=== PATIENT | female | born 1940 | race Caucasian/White ===

== ENCOUNTER → 2016-08-01 | Outpatient (CLI) | payer OTHER ==
[~2016-08-01] MED LIST: ATOR10TA88 PO; CALC-48 PO; CYAN100T6 PO; GARL400T4 PO; MULTTAB94 PO; NAPR-201 PO; PRLSR20 PO
[2016-08-01 17:01] LABS: BASO % 0.2 %; BASO ABS # 0.01 K/uL (0-0.2); COMPLETE YES; EOS % 2.3 %; HEMATOCRIT 35.1 % (37-47); IG% 0.2 %; LYMPH % 22.5 %; LYMPH ABS # 1.18 K/uL (1.2-3.4); MEAN CELL VOLUME 86.7 fL (80-100); MEAN CORPUSCULAR HEMOGLOBIN 29.4 pg (25-34); MEAN CORPUSCULAR HGB CONC 33.9 g/dl (32-36); MEAN PLATELET VOLUME 9.8 fL (7.4-10.4); MONO % 10.9 %; NEUT % 63.9 %; PLATELET COUNT 304 K/uL (130-400); RED BLOOD COUNT 4.05 M/uL (4.2-5.4); WHITE BLOOD COUNT 5.24 K/uL (4.8-10.8)
[2016-08-01 17:18] LABS: ALT/SGPT 23 U/L (12-78); BLOOD UREA NITROGEN 8 mg/dl (7-18); BUN/CREATININE RATIO 9.8 (10-20); CARBON DIOXIDE 28 mmol/L (21-32); CHLORIDE 95 mmol/L (98-107); CHOLESTEROL 195 mg/dl (0-200); CREATININE 0.84 mg/dl (0.60-1.20); GLUCOSE 83 mg/dl (70-99); POTASSIUM 4.1 mmol/L (3.5-5.1); SODIUM 132 mmol/L (136-145)
[2016-08-01 17:28] LABS: ALB/GLOB RATIO 1.4 (0.9-2); ALKALINE PHOSPHATASE 42 U/L (45-117); AST/SGOT 25 U/L (15-37); CHOLESTEROL/HDL RATIO 1.8; HDL CHOLESTEROL 107 mg/dl; LDL CHOLESTEROL CALCULATED 75 mg/dl; TRIGLYCERIDES 66 mg/dl (0-150); VERY LOW DENSITY LIPOPROT CALC 13 mg/dl
[2016-08-02 06:11] LABS: ESTIMATED AVERAGE GLUCOSE 126 mg/dl; HA1C FLAG Normal (Normal)
--- NOTE | 2016-08-06 07:29 | CODING QUERY MEDICAL NECESSITY ---
SUPPORTING DIAGNOSIS NEEDED Dr. Cloud, A supporting diagnosis is required for the test/procedure performed on this patient in order for us to be reimbursed by the patient's insurance. Please provide a supporting diagnosis for the following test/procedure listed below next to the test name along with your signature. *If there is no additional diagnosis for this patient that would support the following test/procedure please document that below next to the test/procedure. Test(s)/Procedure(s) that require a supporting diagnosis: * ([id number]) VITAMIN D ASSAY DIAGNOSIS: DATE OF SERVICE: 08/01/16 Provider Signature: Date: Thank you David Martin [facility] Information Management Once completed, please kindly fax back to [phone] For questions please call [phone]
== END | disposition home or self-care (01) ==
LOC: C.LABBC 14:03
PROVIDERS: ATTEND Internal Medicine Geriatric Medicine
DX: M19.90 Unspecified osteoarthritis, unspecified site (principal); I10 Essential (primary) hypertension; M85.80 Other specified disorders of bone density and structure, unspecified site; E11.9 Type 2 diabetes mellitus without complications; D64.9 Anemia, unspecified; E78.5 Hyperlipidemia, unspecified; E87.1 Hypo-osmolality and hyponatremia

== ENCOUNTER → 2017-02-16 | Outpatient (CLI) | payer OTHER ==
[2017-02-16 13:32] LABS: BASO % 0.7 %; BASO ABS # 0.04 K/uL (0-0.2); COMPLETE YES; EOS % 3.4 %; IG% 0.2 %; LYMPH ABS # 1.27 K/uL (1.2-3.4); MEAN CELL VOLUME 90.7 fL (80-100); MEAN CORPUSCULAR HEMOGLOBIN 28.9 pg (25-34); MEAN CORPUSCULAR HGB CONC 31.9 g/dl (32-36); MEAN PLATELET VOLUME 9.8 fL (7.4-10.4); MONO % 11.6 %; NEUT % 61.1 %; PLATELET COUNT 333 K/uL (130-400); RED BLOOD COUNT 4.08 M/uL (4.2-5.4); WHITE BLOOD COUNT 5.51 K/uL (4.8-10.8)
[2017-02-16 14:03] LABS: BLOOD UREA NITROGEN 14 mg/dl (7-18); BUN/CREATININE RATIO 16.5 (10-20); CALCIUM 9.1 mg/dl (8.5-10.1); CARBON DIOXIDE 26 mmol/L (21-32); CHLORIDE 98 mmol/L (98-107); CREATININE 0.82 mg/dl (0.60-1.20); GLUCOSE 98 mg/dl (70-99); POTASSIUM 4.4 mmol/L (3.5-5.1); SODIUM 132 mmol/L (136-145)
== END | disposition home or self-care (01) ==
LOC: C.LABBC 10:10
PROVIDERS: ATTEND Internal Medicine Geriatric Medicine
DX: I10 Essential (primary) hypertension (principal); E11.9 Type 2 diabetes mellitus without complications; D64.9 Anemia, unspecified; E87.1 Hypo-osmolality and hyponatremia

== ENCOUNTER → 2017-05-04 | Outpatient (CLI) | payer OTHER ==
[~2017-05-04] MED LIST changes: +ATOR10TA82 PO; -ATOR10TA88 PO
--- NOTE | 2017-05-05 07:53 | MAMMOGRAPHY REPORT ---
BILATERAL DIGITAL SCREENING MAMMOGRAM WITH CAD: 05/04/2017 CLINICAL HISTORY: Routine screening. Patient has no complaints. TECHNIQUE: Bilateral CC and MLO views were obtained. Current study was also evaluated with a Compute r Aided Detection (CAD) system. COMPARISON: Comparison is made to exams dated: 04/30/2016 mammogram, 04/27/2015 mammogram, 4 mammogram, 04/08/2013 mammogram, 03/31/2012 mammogram, and 03/26/2011 mammogram - [facility]. BREAST COMPOSITION: There are scattered areas of fibroglandular density in both breasts. FINDINGS: There has been no significant interval change comparing to prior mammograms. No suspiciou s mass, architectural distortion or cluster of microcalcifications is seen. IMPRESSION: ACR BI-RADS CATEGORY 1: NEGATIVE There is no mammographic evidence of malignancy. A 1 year screening mammogram is recommended. The pa tient will receive written notification of the results. Approximately 10% of breast cancers are not detected with mammography. A negative mammographic report should not delay biopsy if a clinically suggestive mass is present. Ana Garibay M.D. ay/:05/04/2017 15:56:04 Acid Bath Mixer: Amanda THOMAS(R)(Ramona)(BD), [facility] letter sent: Normal 1/2 BI-RADS Code: ACR BI-RADS Category 1: Negative
== END | disposition home or self-care (01) ==
LOC: C.MAMM 09:16
PROVIDERS: ATTEND Internal Medicine Geriatric Medicine
DX: Z12.31 Encounter for screening mammogram for malignant neoplasm of breast (principal)

== ENCOUNTER → 2017-08-19 | Outpatient (CLI) | payer OTHER ==
[2017-08-19 13:12] LABS: BASO % 0.5 %; BASO ABS # 0.03 K/uL (0-0.2); EOS % 2.8 %; EOS ABS # 0.17 K/uL (0-0.5); HEMATOCRIT 36.9 % (37-47); HEMOGLOBIN 12.2 g/dL (12.0-16.0); IG# 0.01 K/uL (0.00-0.02); LYMPH % 17.5 %; LYMPH ABS # 1.08 K/uL (1.2-3.4); MEAN CELL VOLUME 89.8 fL (80-100); MEAN CORPUSCULAR HEMOGLOBIN 29.7 pg (25-34); MEAN CORPUSCULAR HGB CONC 33.1 g/dl (32-36); MEAN PLATELET VOLUME 10.1 fL (7.4-10.4); MONO % 9.1 %; MONO ABS # 0.56 K/uL (0.11-0.59); NEUT % 69.9 %; NEUT ABS # 4.32 K/uL (1.4-6.5); PLATELET COUNT 322 K/uL (130-400); RED CELL DISTRIBUTION WIDTH CV 14.7 % (11.5-14.5); RED CELL DISTRIBUTION WIDTH SD 48.8 fL (36.4-46.3); WHITE BLOOD COUNT 6.17 K/uL (4.8-10.8)
[2017-08-19 13:34] LABS: ALBUMIN 3.9 gm/dl (3.4-5.0); ALT/SGPT 24 U/L (12-78); BLOOD UREA NITROGEN 13 mg/dl (7-18); CALCIUM 8.7 mg/dl (8.5-10.1); CARBON DIOXIDE 28 mmol/L (21-32); CHOLESTEROL 186 mg/dl (0-200); CREATININE 0.81 mg/dl (0.60-1.20); GLUCOSE 99 mg/dl (70-99); POTASSIUM 4.2 mmol/L (3.5-5.1); SODIUM 133 mmol/L (136-145)
[2017-08-19 13:44] LABS: ALKALINE PHOSPHATASE 43 U/L (45-117); AST/SGOT 21 U/L (15-37); LDL CHOLESTEROL CALCULATED 81 mg/dl
[2017-08-19 13:47] LABS: HEMOGLOBIN A1C 6.1 % (4.5-5.6)
== END | disposition home or self-care (01) ==
LOC: C.LABBC 11:03
PROVIDERS: ATTEND Internal Medicine Geriatric Medicine
DX: I10 Essential (primary) hypertension (principal); E11.9 Type 2 diabetes mellitus without complications; D64.9 Anemia, unspecified; E78.5 Hyperlipidemia, unspecified; E87.1 Hypo-osmolality and hyponatremia; G45.9 Transient cerebral ischemic attack, unspecified

== ENCOUNTER → 2017-08-20 | Outpatient (CLI) | payer OTHER ==
--- NOTE | 2017-08-20 09:51 | DIAGNOSTIC IMAGING REPORT ---
CHEST 2 VIEWS ROUTINE CLINICAL HISTORY: R06.09 WHYTE (dyspnea on exertion) COMPARISON STUDY: 10/07/2005 FINDINGS: The cardiac and mediastinal contours are normal. There is no evidence of focal pulmonary consolidation. There is no evidence of failure. No pleural effusions are visualized.[ IMPRESSION: No active disease in the chest. Electronically signed by: Tanner Morales M.D. 08/20/2017 9:50 AM Dictated Date/Time: 08/20/2017 9:49 AM
== END | disposition home or self-care (01) ==
LOC: C.RADBC 09:32
PROVIDERS: ATTEND Internal Medicine Geriatric Medicine
DX: R06.09 Other forms of dyspnea (principal)

== ENCOUNTER 2020-12-07 18:59 | Observation (INO) ==
[~2020-12-07 18:59] MED LIST changes: -ATOR10TA82 PO; -CALC-48 PO; -CYAN100T6 PO; -GARL400T4 PO; -MULTTAB94 PO; -NAPR-201 PO; +OPTIRAY 320 125ml IV ONE; -PRLSR20 PO
[2020-12-07] MEDS ORDERED: SODIUM CHLORIDE 0.9% 1000ML 1,000 ML IV SCH (19:00)
--- NOTE | 2020-12-07 19:22 | CT Scan Report ---
CT head/brain wo con CLINICAL HISTORY: Stroke Like Symptoms COMPARISON STUDY: None TECHNIQUE: Axial CT of the brain is performed from the vertex to the skull base. IV contrast was not administered for this examination. A dose lowering technique was utilized adhering to the principles of ALARA. CT DOSE: 1041.45 mGy.cm FINDINGS: No intra or extra-axial mass lesions are visualized. There is no CT evidence of acute cortical infarc tion. There is no evidence of midline shift. There is no acute hemorrhage. No acute depressed calvar ial fractures are visualized. There are patchy white matter hypodensities likely on a small vessel basis. There is no evidence of pathologic ventricular dilatation. There is no evidence of acute sinusitis Incidental findings of 1.0 cm circumscribed lesion is seen within right parietal scalp (/). IMPRESSION: No acute intracranial hemorrhage, no midline shift or space occupying lesions. Subcutaneous scalp lesion as detailed above. Please correlate this findings with direct inspection. ACT 112: Negative or not required by law. The above report was generated using voice recognition software. It may contain grammatical, syntax o r spelling errors. Electronically signed by: Coco Dexter DO 12/07/2020 7:21 PM
--- NOTE | 2020-12-07 19:30 | Emergency Department Note ---
Impression & Plan Stroke-like symptoms, Arm numbness left, Acute confusion, Headache ED Provider Note INFORMANT: Patient ED PROVIDER(S): Navid Medina MD CHIEF COMPLAINT: Strokelike symptoms PLAN: Disposition: Admitted Condition: Good Outpatient prescription management: none Referral: None MEDICAL DECISION MAKING: The patient presented and was made a stroke alert. She was evaluated in CAT scan by myself. She was taken back to the emergency department. I did consult with Dr. Pride of [facility] The patient's symptoms were essentially resolved. He and I discussed the patient's CT findings. He felt that TPA was not appropriate in this case and I agree. The patient has near re solution of symptoms. He did ask for her to pass the rest of the NIH screening, CT angiography, and a gait test. The patient did well on all 3 of those aspects. She was recommended to have a dose of aspirin and to transition to Plavix given aspirin causing her GI upset. Patient states she is able to take a dose or 2 without problems. She was given enteric dose of aspirin. I discussed the patient's situation with her and family. I discussed the need for further management in the hospital as recommended by [facility] The patient and family were in agreement. The patient had a consultation made with Dr. Minaya of internal medicine. The patient was evaluated by the team in the ER admitted for further management. Triage Nursing notes reviewed and agree them. Vital Signs: reviewed and remarkable for no significant abnormalities Differential diagnosis: CVA, TIA, infection, dehydration, metabolic abnormality, hypo/hyperglycemia, electrolyte disturbance, anemia, hypoxia, cardiac sources, intracerebral event, toxicologic, neurologic, as well as other pathologies. Diagnostics interpreted by me: ECG: Twelve-lead ECG reveals a normal sinus rhythm at 71 bpm. Septal Q waves present. No ST elevation or pression. No PACs or PVCs. Cardiac Monitoring: Cardiac monitoring ordered by me: The patient was placed on continuous cardiac monitoring and observed. It revealed a normal sinus rhythm at 70 beats per minute without ectopy or evidence of dysrhythmia. Imaging studies: Head CT: A noncontrast CT scan of the head was performed and was negative for tumor, fracture, intracranial hemorrhage, or other acute pathology. HPI: The patient is a 79 year old female who presents to the Emergency Room with complaints of strokelike symptoms. This started 1630 hrs. today and is current ly improving. The patient also notes the following associated symptoms, headache, acute confusion, difficulty speaking, left arm numbness, blurred vision, nausea. The patient has taken aspirin for relieving factors. Current pain is rated as 2/10. Patient notes symptoms have significantly improved since onset. She has had some similar episodes in the past but the previous ones were not associated with headache. She has had a work-up as an outpatient that did not find any issues. This included an EEG and MRI. Pt denies LOC, chills, diaphoresis, neck pain, chest pain, breathing difficulties, vomiting, abdominal pain, back pain, melena, hematochezia, urinary symptoms, weakness, lymphadenopathy, rash, or other complaints. ROS: See above HPI for pertinent positives & negatives. A total of 10 systems reviewed and were otherwise negative. PAST MEDICAL HISTORY:See Below , diabetes PAST SURGICAL HISTORY:See Below, FAMILY HISTORY:See Below SOCIAL HISTORY:See Below, HOME MEDICATIONS:See Below ALLERGIES:See Below VITALS:See Below PHYSICAL EXAMINATION: GENERAL: Awake, alert, uncomfortable and anxious-appearing, in no distress HENT: Normocephalic, atraumatic. Oropharynx unremarkable. EYES: Normal conjunctiva. Sclera non-icteric. PERRLA. EOMI. NECK: Inspection normal. Non-tender. Supple. No nuchal rigidity. FROM. No khang s. RESPIRATORY: Clear to auscultation. No wheezes. No rales. Normal respiratory effort. CARDIAC: Normal rate. Normal rhythm. No murmurs. No rubs. Extremities warm and well perfused. Pulses equal. No JVD. GI: Soft, non-distended. No tenderness to palpation. No rebound or guarding. No masses. RECTAL: Deferred. MUSCULOSKELETAL: Atraumatic. Chest examination reveals no tenderness. The back is symmetrical on inspection without obvious abnormality. There is no CVA tenderness to palpation. No joint edema. LOWER EXTREMITIES: Calves are equal size bilaterally and non-tender. No edema. No discoloration. NEURO: Normal sensorium. No sensory or motor deficits noted. Cranial nerves II through XII intact. Speech normal. Following commands well. Normal rapid alternating movements. No drift. SKIN: No rash or jaundice noted. Navid Medina MD Past Med/Surg History Medical History Bowel obstruction Dyslipidemia Family history of melanoma Gastroesophageal reflux disease History of transient cerebral ischemia Obesity, Class I, BMI 30-34.9 Type 2 diabetes mellitus Surgical History History of appendectomy History of colonoscopy History of dilation and curettage History of femoral hernia repair 2014. with mesh. Dr Amato History of loop electrical excision procedure (LEEP) History of ovarian cystectomy Family History Aunt Breast cancer Colorectal cancer Diabetes Sister Lupus erythematosus Brother Skin cancer (melanoma) Brain cancer Denies family history of Ovarian cancer Prostate cancer Myocardial infarction Social History Smoking Status: Former smoker Tobacco Type: Cigarettes Second Hand Exposure: No; Hx Alcohol Use: No Hx Substance Use: No Preferred Language: Turkmen Communication Ability: Effective Visual Impairment: Limited Hearing Ability: Normal Ultrasound Technician Required: No Beliefs That Will Affect Care: None marital status: / marital status details: remarried Current Living Situation: Spouse current occupational status: retired How many Children do You have: 0 Other Information That Helps Us Care for You: No Feels Safe at Home: Yes Childhood Exposure to Second-Hand Smoke: Yes caffeine: Yes Dental Care, Regularly: Yes Physical Activity Frequency: Does not Exercise Seatbelt Use: always Sunscreen Use: Yes Assistive Devices: None Allergies Allergies Allergy/AdvReac Type Severity Reaction Status Date / Time niacin Allergy Unknown Verified 12/07/20 20:03 Home Meds Home Medications Medication Instructions Recorded Confirmed ferrous sulfate 325 mg (65 mg 162.5 mg PO DAILY tab 05/09/19 12/07/20 iron) tablet cholecalciferol (vitamin D3) 50 50 mcg PO DAILY 12/07/20 12/07/20 mcg (2,000 unit) tablet (Vitamin D3) garlic 0 mg PO DAILY 12/07/20 12/07/20 vitamin B complex 1 tab PO DAILY 12/07/20 12/07/20 Previous Rx's Medication Instructions Recorded escitalopram oxalate 10 mg tablet 5 mg PO DAILY #45 tab 12/26/19 (Lexapro) atorvastatin 10 mg tablet (Lipitor) 10 mg PO DAILY #90 tab 06/21/20 omeprazole 20 mg capsule,delayed 20 mg PO DAILY #90 cap 09/20/20 release celecoxib 200 mg capsule (Celebrex) 200 mg PO DAILY #14 cap 11/26/20 Results & Data (ED) Vital Signs Vital Signs - 24 hr 12/07/20 19:22 12/07/20 19:35 12/07/20 21:12 Temperature 36.8 C Temperature Source Oral Pulse Rate 79 Pulse Rate [Right Finger] 73 69 Respiratory Rate 18 18 18 Blood Pressure 123/73 Blood Pressure [Right Arm] 115/69 138/81 Blood Pressure Mean 89 Blood Pressure Mean [Right Arm] 84 100 Blood Pressure Position Lying Blood Pressure Position [Right Arm] Lying Pulse Oximetry 96 96 96 Oxygen Delivery Method Room Air Room Air Room Air Sepsis Recent Fever Within 48 Hours No Sepsis New/Unexplained Change in Mental Status No Sepsis Action Taken by Nursing No Action Required Laboratory Data Result diagrams: 12/07/20 19:20 12/07/20 19:20 Lab Results 12/07/20 12/07/20 12/07/20 Range/Units 19:18 19:20 19:20 WBC 5.79 (4.8-10.8) K/uL RBC 3.50 L (4.2-5.4) M/uL Hgb 10.4 L (12.0-16.0) g/dL Hct 31.7 L (37-47) % MCV 90.6 (80-100) fL MCH 29.7 (25-34) pg MCHC 32.8 (32-36) g/dL RDW Std Deviation 46.1 (36.4-46.3) fL RDW Coeff of Sanchez 13.9 (11.5-14.5) % Plt Count 258 (130-400) K/uL MPV 9.9 (7.4-10.4) fL Immature Gran % (Auto) 0.0 % Neut % (Auto) 60.2 % Lymph % (Auto) 27.5 % Ransom % (Auto) 7.8 % Eos % (Auto) 4.0 % Baso % (Auto) 0.5 % Neut # (Auto) 3.49 (1.4-6.5) K/uL Lymph # (Auto) 1.59 (1.2-3.4) K/uL Ransom # (Auto) 0.45 (0.11-0.59) K/uL Eos # (Auto) 0.23 (0-0.5) K/uL Baso # (Auto) 0.03 (0-0.2) K/uL Immature Gran # (Auto) 0.00 (0.00-0.02) K/uL PT (9.0-12.0) Seconds INR (0.9-1.1) APTT (21.0-31.0) Seconds PTT Ratio Sodium (136-145) mmol/L Potassium (3.5-5.1) mmol/L Chloride (98-107) mmol/L Carbon Dioxide (21-32) mmol/L Anion Gap (3-11) BUN (7-18) mg/dl Creatinine (0.6-1.2) mg/dl Est Cr Clr Drug Dosing ml/min Est GFR ( Amer) ml/min Est GFR (Non-Af Amer) ml/min BUN/Creatinine Ratio (10-20) Glucose (70-99) mg/dl POC Glucose 131 H (70-99) mg/dl Calcium (8.5-10.1) mg/dl Magnesium (1.8-2.4) mg/dl Total Bilirubin (0.2-1) mg/dl AST (15-37) U/L ALT (12-78) U/L Alkaline Phosphatase (45-117) U/L Troponin I (0-0.045) ng/ml Total Protein (6.4-8.2) gm/dl Albumin (3.4-5.0) gm/dl Globulin (2.5-4.0) gm/dl Albumin/Globulin Ratio (0.9-2) Urine Color Urine Appearance (Clear) Urine pH (4.5-7.5) Ur Specific [place] (1.000-1.030) Urine Protein (Negative) Urine Glucose (UA) (Negative) Urine Ketones (Negative) Urine Blood (Negative) Urine Nitrite (Negative) Urine Bilirubin (Negative) Urine Urobilinogen (Negative) Ur Leukocyte Esterase (Negative) COVID-19 Eval Order SARS-CoV-2 (PCR) (Negative) Blood Type O Positive Antibody Screen NEGATIVE 12/07/20 12/07/20 12/07/20 Range/Units 19:20 19:20 19:33 WBC (4.8-10.8) K/uL RBC (4.2-5.4) M/uL Hgb (12.0-16.0) g/dL Hct (37-47) % MCV (80-100) fL MCH (25-34) pg MCHC (32-36) g/dL RDW Std Deviation (36.4-46.3) fL RDW Coeff of Sanchez (11.5-14.5) % Plt Count (130-400) K/uL MPV (7.4-10.4) fL Immature Gran % (Auto) % Neut % (Auto) % Lymph % (Auto) % Ransom % (Auto) % Eos % (Auto) % Baso % (Auto) % Neut # (Auto) (1.4-6.5) K/uL Lymph # (Auto) (1.2-3.4) K/uL Ransom # (Auto) (0.11-0.59) K/uL Eos # (Auto) (0-0.5) K/uL Baso # (Auto) (0-0.2) K/uL Immature Gran # (Auto) (0.00-0.02) K/uL PT 10.4 (9.0-12.0) Seconds INR 1.0 (0.9-1.1) APTT 28.8 (21.0-31.0) Seconds PTT Ratio 1.1 Sodium 130 L (136-145) mmol/L Potassium 4.1 (3.5-5.1) mmol/L Chloride 99 (98-107) mmol/L Carbon Dioxide 28 (21-32) mmol/L Anion Gap 3.0 (3-11) BUN 21 H (7-18) mg/dl Creatinine 0.76 (0.6-1.2) mg/dl Est Cr Clr Drug Dosing 58.4 ml/min Est GFR ( Amer) 85.3 ml/min Est GFR (Non-Af Amer) 73.6 ml/min BUN/Creatinine Ratio 28.3 H (10-20) Glucose 122 H (70-99) mg/dl POC Glucose (70-99) mg/dl Calcium 8.3 L (8.5-10.1) mg/dl Magnesium 2.1 (1.8-2.4) mg/dl Total Bilirubin 0.2 (0.2-1) mg/dl AST 18 (15-37) U/L ALT 17 (12-78) U/L Alkaline Phosphatase 42 L (45-117) U/L Troponin I < 0.015 (0-0.045) ng/ml Total Protein 5.7 L (6.4-8.2) gm/dl Albumin 3.0 L (3.4-5.0) gm/dl Globulin 2.7 (2.5-4.0) gm/dl Albumin/Globulin Ratio 1.1 (0.9-2) Urine Color Urine Appearance (Clear) Urine pH (4.5-7.5) Ur Specific [place] (1.000-1.030) Urine Protein (Negative) Urine Glucose (UA) (Negative) Urine Ketones (Negative) Urine Blood (Negative) Urine Nitrite (Negative) Urine Bilirubin (Negative) Urine Urobilinogen (Negative) Ur Leukocyte Esterase (Negative) COVID-19 Eval Order Covid19 at [facility] SARS-CoV-2 (PCR) (Negative) Blood Type Antibody Screen 12/07/20 12/07/20 Range/Units 19:33 19:55 WBC (4.8-10.8) K/uL RBC (4.2-5.4) M/uL Hgb (12.0-16.0) g/dL Hct (37-47) % MCV (80-100) fL MCH (25-34) pg MCHC (32-36) g/dL RDW Std Deviation (36.4-46.3) fL RDW Coeff of Sanchez (11.5-14.5) % Plt Count (130-400) K/uL MPV (7.4-10.4) fL Immature Gran % (Auto) % Neut % (Auto) % Lymph % (Auto) % Ransom % (Auto) % Eos % (Auto) % Baso % (Auto) % Neut # (Auto) (1.4-6.5) K/uL Lymph # (Auto) (1.2-3.4) K/uL Ransom # (Auto) (0.11-0.59) K/uL Eos # (Auto) (0-0.5) K/uL Baso # (Auto) (0-0.2) K/uL Immature Gran # (Auto) (0.00-0.02) K/uL PT (9.0-12.0) Seconds INR (0.9-1.1) APTT (21.0-31.0) Seconds PTT Ratio Sodium (136-145) mmol/L Potassium (3.5-5.1) mmol/L Chloride (98-107) mmol/L Carbon Dioxide (21-32) mmol/L Anion Gap (3-11) BUN (7-18) mg/dl Creatinine (0.6-1.2) mg/dl Est Cr Clr Drug Dosing ml/min Est GFR ( Amer) ml/min Est GFR (Non-Af Amer) ml/min BUN/Creatinine Ratio (10-20) Glucose (70-99) mg/dl POC Glucose (70-99) mg/dl Calcium (8.5-10.1) mg/dl Magnesium (1.8-2.4) mg/dl Total Bilirubin (0.2-1) mg/dl AST (15-37) U/L ALT (12-78) U/L Alkaline Phosphatase (45-117) U/L Troponin I (0-0.045) ng/ml Total Protein (6.4-8.2) gm/dl Albumin (3.4-5.0) gm/dl Globulin (2.5-4.0) gm/dl Albumin/Globulin Ratio (0.9-2) Urine Color Yellow Urine Appearance Clear (Clear) Urine pH 6.0 (4.5-7.5) Ur Specific [place] 1.017 (1.000-1.030) Urine Protein Negative (Negative) Urine Glucose (UA) Negative (Negative) Urine Ketones Negative (Negative) Urine Blood Negative (Negative) Urine Nitrite Negative (Negative) Urine Bilirubin Negative (Negative) Urine Urobilinogen Negative (Negative) Ur Leukocyte Esterase Negative (Negative) COVID-19 Eval Order SARS-CoV-2 (PCR) NEGATIVE (Negative) Blood Type Antibody Screen Administered Medications Sodium Chloride (Nss 1000ml) 1,000 mls @ 50 mls/hr IV .Q20H ALISHA Stop: 01/06/21 18:59 Last Admin: 12/07/20 19:39 Dose: 50 mls/hr Documented by: [id number] Discontinued Medications Aspirin (Aspirin 325 Mg Ectab) 325 mg PO NOW STA Stop: 12/07/20 20:38 Last Admin: 12/07/20 21:09 Dose: 325 mg Documented by: [id number] Ioversol (Optiray 320 125ml) 116 ml IV ONCE ONE Stop: 12/07/20 18:58 Last Admin: 12/07/20 18:57 Dose: 116 ml Documented by: [id number] Imaging Data Radiologist's Impression: Chest X-Ray 12/07/20 18:53 XR chest 1V portable CLINICAL HISTORY: Stroke Like Symptoms COMPARISON STUDY: Chest radiograph August 20, 2017. FINDINGS: Lung volumes are normal. There is no pneumothorax or pleural effusion. There is no evidence for pulmonary edema. Minimal right basilar opacity is present. Mild cardiomegaly. IMPRESSION: 1. Minimal right basilar opacity which favors atelectasis. 2. Mild cardiomegaly without evidence for pulmonary edema. ACT 112: Negative or not required by law. Electronically signed by: Marvin Fung M.D. 12/07/2020 9:[address] 12/07/20 18:53 CT head/brain wo con CLINICAL HISTORY: Stroke Like Symptoms COMPARISON STUDY: None TECHNIQUE: Axial CT of the brain is performed from the vertex to the skull bas e. IV contrast was not administered for this examination. A dose lowering technique was utilized adhering to the principles of ALARA. CT DOSE: 1041.45 mGy.cm FINDINGS: No intra or extra-axial mass lesions are visualized. There is no CT evidence of acute cortical infarction. There is no evidence of midline shift. There is no acute hemorrhage. No acute depressed calvarial fractures are visualized. There are patchy white matter hypodensities likely on a small vessel basis. There is no evidence of pathologic ventricular dilatation. There is no evidence of acute sinusitis Incidental findings of 1.0 cm circumscribed lesion is seen within right parietal scalp (08/12). IMPRESSION: No acute intracranial hemorrhage, no midline shift or space occupying lesions. Subcutaneous scalp lesion as detailed above. Please correlate this findings with direct inspection. ACT 112: Negative or not required by law. The above report was generated using voice recognition software. It may contain grammatical, syntax or spelling errors. Electronically signed by: Coco Dexter DO 12/07/2020 7:21 PM Head CTA 12/07/20 18:53 CT angio head w con CLINICAL HISTORY: Stroke Like Symptoms TECHNIQUE: CT angiography of the head was performed in a dynamic helical fashion during intravenous administration of 116 cc of Optiray. MIP imaging was perfor med. A dose lowering technique was utilized adhering to the principles of ALARA. CT DOSE: COMPARISON STUDY: No previous studies for comparison. FINDINGS: There are no lesion suspicious for aneurysm. There are no major intracranial branch occlusions. The dural venous sinuses appear patent. IMPRESSION: No evidence of focal occlusion or significant stenosis within intracranial arteries as detailed above. ACT 112: Negative or not required by law. The above report was generated using voice recognition software. It may contain grammatical, syntax or spelling errors. Electronically signed by: Coco Dexter DO 12/07/2020 8:14 PM Neck CTA 12/07/20 18:53 CT angio neck with con CLINICAL HISTORY: Stroke Like Symptoms COMPARISON STUDY: No previous studies for comparison. TECHNIQUE: CT angiography was performed from the aortic arch to the skull base. MIP imaging was performed. The patient was scanned in a dynamic helical fashion during intravenous administration of cc of Optiray. A dose lowering technique was utilized adhering to the principles of ALARA. CT DOSE: Technique: CT angiogram of the carotid and vertebral arteries was obtained using intravenous contrast and 3-D reconstruction. NASCET criteria was utilized. Findings: Limited evaluation of lung apices shows 4 mm pulmonary nodule within right upper lobe (4/57). Bilateral internal and external carotid arteries are extremely tortuous. Few atherosclerotic plaques are seen within its wall without significant stenosis. The right carotid revealed no evidence of aneurysm and no evidence of di ssection. There is no evidence of hemodynamic significant stenosis. The left carotid revealed no evidence of hemodynamic significant stenosis. There is no evidence of aneurysm. There is no evidence of dissection. There is no evidence of hemodynamically significant vertebral stenosis. Right and left vertebral arteries are tortuous with multiple eccentric plaques and no evidence of hemodynamically significant stenosis. There is no evidence of vertebral dissection. IMPRESSION: No evidence of hemodynamically significant carotid or vertebral artery stenosis. No evidence of dissection. 4 mm pulmonary nodule within the right upper lobe. Follow-up evaluation with noncontrast CT of the chest on nonemergency basis might be considered. ACT 112: Positive. There are findings on this exam that require communication between the performing entity and the patient following Patient Test Result Information Act ([place] Act 112) guidelines. The above report was generated using voice recognition software. It may contain grammatical, syntax or spelling errors. Electronically signed by: Coco Dexter DO 12/07/2020 8:09 PM Discharge Plan Visit Data Chief Complaint: Stroke Alert Stated Complaint: STROKE ED Provider: Navid Medina Discharge Problem: Stroke-like symptoms, Arm numbness left, Acute confusion, Headache Patient Disposition: Admitted As Inpatient Discharge Instructions Interventions: ED Discharge Assessment Last Done: 12/07/20 22:07
[2020-12-07 19:40] LABS: Basophils # (auto) 0.03 K/uL (0-0.2); Basophils % (auto) 0.5 %; Eosinophils # (auto) 0.23 K/uL (0-0.5); Hematocrit (blood only) 31.7 % (37-47); Hemoglobin 10.4 g/dL (12.0-16.0); Lymphocytes # (auto) 1.59 K/uL (1.2-3.4); Lymphocytes % (auto) 27.5 %; Mean Corpuscular Hemoglobin 29.7 pg (25-34); Mean Corpuscular Hgb Conc 32.8 g/dL (32-36); Mean Corpuscular Volume 90.6 fL (80-100); Mean Platelet Volume 9.9 fL (7.4-10.4); Monocytes # (auto) 0.45 K/uL (0.11-0.59); Monocytes % (auto) 7.8 %; Neutrophils # (auto) 3.49 K/uL (1.4-6.5); Neutrophils % (auto) 60.2 %; Platelet Count 258 K/uL (130-400); RDW Coefficient of Variation 13.9 % (11.5-14.5); RDW Standard Deviation 46.1 fL (36.4-46.3); White Blood Count 5.79 K/uL (4.8-10.8)
[2020-12-07 20:01] LABS: Alanine Aminotransferase 17 U/L (12-78); Aspartate Aminotransferase 18 U/L (15-37); BUN Creatinine Ratio 28.3 (10-20); Blood Urea Nitrogen 21 mg/dl (7-18); Calcium 8.3 mg/dl (8.5-10.1); Carbon Dioxide 28 mmol/L (21-32); Chloride 99 mmol/L (98-107); Creatinine Clr Calc Pharmacy 58.4 ml/min; Est GFR (African American) 85.3 ml/min; Est GFR (Non-African American) 73.6 ml/min; Glucose 122 mg/dl (70-99); Magnesium 2.1 mg/dl (1.8-2.4); Potassium 4.1 mmol/L (3.5-5.1); Sodium 130 mmol/L (136-145)
[2020-12-07 20:05] LABS: Albumin Globulin Ratio 1.1 (0.9-2); Alkaline Phosphatase 42 U/L (45-117); Bilirubin,Total 0.2 mg/dl (0.2-1); Globulin 2.7 gm/dl (2.5-4.0); Partial Thromboplastin Ratio 1.1; Partial Thromboplastin Time 28.8 Seconds (21.0-31.0); Prothrombin Time 10.4 Seconds (9.0-12.0); Total Protein 5.7 gm/dl (6.4-8.2); Troponin I < 0.015 ng/ml (0-0.045)
--- NOTE | 2020-12-07 20:10 | CT Scan Report ---
CT angio neck with con CLINICAL HISTORY: Stroke Like Symptoms COMPARISON STUDY: No previous studies for comparison. TECHNIQUE: CT angiography was performed from the aortic arch to the skull base. MIP imaging was perfo rmed. The patient was scanned in a dynamic helical fashion during intravenous administration of cc of Optiray. A dose lowering technique was utilized adhering to the principles of ALARA. CT DOSE: Technique: CT angiogram of the carotid and vertebral arteries was obtained using intravenous contrast and 3-D reconstruction. NASCET criteria was utilized. Findings: Limited evaluation of lung apices shows 4 mm pulmonary nodule within right upper lobe (4/57). Bilateral internal and external carotid arteries are extremely tortuous. Few atherosclerotic plaques are seen within its wall without significant stenosis. The right carotid revealed no evidence of aneurysm and no evidence of dissection. There is no evidenc e of hemodynamic significant stenosis. The left carotid revealed no evidence of hemodynamic significant stenosis. There is no evidence of an eurysm. There is no evidence of dissection. There is no evidence of hemodynamically significant vertebral stenosis. Right and left vertebral candi nellie are tortuous with multiple eccentric plaques and no evidence of hemodynamically significant sten osis. There is no evidence of vertebral dissection. IMPRESSION: No evidence of hemodynamically significant carotid or vertebral artery stenosis. No evidence of disse ction. 4 mm pulmonary nodule within the right upper lobe. Follow-up evaluation with noncontrast CT of the ch est on nonemergency basis might be considered. ACT 112: Positive. There are findings on this exam that require communication between the performing entity and the patient following Patient Test Result Information Act ([place] Act 112) guidelines. The above report was generated using voice recognition software. It may contain grammatical, syntax o r spelling errors. Electronically signed by: Coco Dexter DO 12/07/2020 8:09 PM
--- NOTE | 2020-12-07 20:15 | CT Scan Report ---
CT angio head w con CLINICAL HISTORY: Stroke Like Symptoms TECHNIQUE: CT angiography of the head was performed in a dynamic helical fashion during intravenous a dministration of 116 cc of Optiray. MIP imaging was performed. A dose lowering technique was utilized adhering to the principles of ALARA. CT DOSE: COMPARISON STUDY: No previous studies for comparison. FINDINGS: There are no lesion suspicious for aneurysm. There are no major intracranial branch occlusi ons. The dural venous sinuses appear patent. IMPRESSION: No evidence of focal occlusion or significant stenosis within intracranial arteries as d etailed above. ACT 112: Negative or not required by law. The above report was generated using voice recognition software. It may contain grammatical, syntax o r spelling errors. Electronically signed by: Coco Dexter DO 12/07/2020 8:14 PM
[2020-12-07] MEDS ORDERED: ASPIRIN 325 MG ECTAB PO STA (20:37)
[2020-12-07 20:56] LABS: Appearance Urine Clear (Clear); Bilirubin Urine Negative (Negative); Blood Urine Negative (Negative); Color Urine Yellow; Glucose Urine UA Negative (Negative); Ketones Urine Negative (Negative); Leukocyte Esterase Urine Negative (Negative); Nitrite Urine Negative (Negative); Protein Urine Negative (Negative); Specific Gravity Urine 1.017 (1.000-1.030); Urobilinogen Urine Negative (Negative)
--- NOTE | 2020-12-07 21:13 | XRay Report ---
XR chest 1V portable CLINICAL HISTORY: Stroke Like Symptoms COMPARISON STUDY: Chest radiograph August 20, 2017. FINDINGS: Lung volumes are normal. There is no pneumothorax or pleural effusion. There is no evidence for pulmonary edema. Minimal right basilar opacity is present. Mild cardiomegaly. IMPRESSION: 1. Minimal right basilar opacity which favors atelectasis. 2. Mild cardiomegaly without evidence for pulmonary edema. ACT 112: Negative or not required by law. Electronically signed by: Marvin Fung M.D. 12/07/2020 9:12 PM
--- NOTE | 2020-12-07 21:54 | History & Physical Report ---
Date of Service December 07, 2020 Assessment & Plan (1) Stroke-like symptoms: Plan: 79 yo F here with pMHx. of DMII (diet controlled), prior smoking history, anemia, reflux, dyslipidemia, HTN and OA presenting with recurrent episodes of right sided vision blurring, word finding difficulty concerning for stroke. admit to med/surg with tele Stroke like symptoms differential includes stroke vs. complex migraine vs. seizure activity although this is unlikely as she has no prior history of this CT Head: with no acute findings CTA Head and Neck: No evidence of focal occlusion or significant stenosis within intracranial arteries NSR on exam - stroke protocol enacted, not given TPA as her symptoms resolved - seen by telestroke in the ER - MRI w/ & w/o ordered - EEG ordered - continue statin; ASA ordered once although she is not able to tolerate chronically and we will initiate Plavix tomorrow AM - Neurology consulted - PT, OT, speech ordered - allow for permissive hypertension DM II diet controlled - continue to monitor blood sugars Dyslipidemia - continue home statin Reflux - continue home PPI Depression - continue home escitalopram Pulmonary nodule CT neck with incidental finding of 4mm pulmonary nodule, patient notified - consider dedicated CT chest during hospitalization or as an outpatient and follow screening guidelines going forward Diet: DM II DVT: SCD's Code: full Dispo: pending neuro workup (2) Headache: (3) Type 2 diabetes mellitus: (4) Anemia: (5) Depression with anxiety: (6) Hypertension: History of Present Illness Chief Complaint: Arm numbness, vision changes, and headache Primary Care Provider: Rip Cloud MD Jayashree Renee is here today with her and daughter for arm numbness, vision changes, and headache. She has had 5 episodes over the last year. Her episode started at 4:30 PM with right sided vision blurring and numbness of the face and left hand. She has had cataract surgery on the right. She had trouble speaking described as word finding and slow speech although she was not aware of this but her was. She had numbness of her face and left fingers (1-5) and developed a headache which she has not had with prior episodes. The headache was frontal, minor and without associated photophobia or phonophobia. This headache was not like any headache she has had in the past. She did have bad headaches prior to menopause, never with an aura. After the episode she felt fatigued and went to sleep for several hours. She is currently only having numbness in her left hand all other symptoms have resolved. Prior workup of her episodes has included: EEG on 03/20/2020 that was read as normal. MRI with no acute intracranial finding on 03/08. Event monitor on 04/27/20 with no arrhythmias noted. Denies: recent illness, no recent tick bites Allergies Allergy/AdvReac Type Severity Reaction Status Date / Time niacin Allergy Unknown Verified 12/07/20 20:03 Home Medications Medication Instructions Recorded Confirmed Type ferrous sulfate 325 mg (65 mg 162.5 mg PO DAILY tab 05/09/19 12/07/20 History iron) tablet escitalopram oxalate 10 mg tablet 5 mg PO DAILY #45 tab 12/26/19 12/07/20 Rx (Lexapro) atorvastatin 10 mg tablet (Lipitor) 10 mg PO DAILY #90 tab 06/21/20 12/07/20 Rx omeprazole 20 mg capsule,delayed 20 mg PO DAILY #90 cap 09/20/20 12/07/20 Rx release celecoxib 200 mg capsule (Celebrex) 200 mg PO DAILY #14 cap 11/26/20 12/07/20 Rx cholecalciferol (vitamin D3) 50 50 mcg PO DAILY 12/07/20 12/07/20 History mcg (2,000 unit) tablet (Vitamin D3) garlic 0 mg PO DAILY 12/07/20 12/07/20 History vitamin B complex 1 tab PO DAILY 12/07/20 12/07/20 History verapamil 120 mg 24 hr 120 mg PO DAILY #30 cap 12/08/20 Rx capsule,extended release Past Med/Surg History Medical History Bowel obstruction Dyslipidemia Family history of melanoma Gastroesophageal reflux disease History of transient cerebral ischemia Obesity, Class I, BMI 30-34.9 Type 2 diabetes mellitus Surgical History History of appendectomy History of colonoscopy History of dilation and curettage History of femoral hernia repair 2013. with mesh. Dr Amato History of loop electrical excision procedure (LEEP) History of ovarian cystectomy Family History Aunt Breast cancer Colorectal cancer Diabetes Sister Lupus erythematosus Brother Skin cancer (melanoma) Brain cancer Denies family history of Ovarian cancer Prostate cancer Myocardial infarction Social History Smoking Status: Former smoker Tobacco Type: Cigarettes Second Hand Exposure: No; Hx Alcohol Use: No Hx Substance Use: No Preferred Language: Telugu Communication Ability: Effective Visual Impairment: Limited Hearing Ability: Normal Animal Cruelty Investigator Required: No Beliefs That Will Affect Care: None marital status: / marital status details: remarried Current Living Situation: Spouse current occupational status: retired How many Children do You have: 0 Feels Safe at Home: Yes Childhood Exposure to Second-Hand Smoke: Yes caffeine: Yes Dental Care, Regularly: Yes Physical Activity Frequency: Does not Exercise Seatbelt Use: always Sunscreen Use: Yes Assistive Devices: None Review of Systems Review of Systems: Constitutional: denies: fevers, chills, vomiting, weight loss admit: nausea fatigue, chronic night sweats head: denies trauma, LOC Neuro: denies syncope, slurring speech, focal weakness admits: left arm numbness ENT: denies vertigo, sore throat, sneezing admits rhinorrhea, stuffiness Cardiac: denies chest pain, palpitations Pulm.: denies cough, shortness of breath GI: denies diarrhea, constipation, changes in bowel pattern, no blood in stool admits slight abdominal pain : denies urgency, polyuria, dysuria Physical Exam Constitutional: WD/WN, vitals as above Eyes: PERRL, conjunctivae normal, anicteric sclerae Neck: normal visual inspection Respiratory: normal respiratory effort, lungs clear to auscultation Cardiovascular: RRR, no murmur, no edema Gastrointestinal (Abdomen): - soft, nTTP, no guarding Neurologic: CN's II-XI intact bilaterally and moves all extremities; no focal motor deficits Speech / Cognition: normal speech Cranial Nerves: tongue midline Psychiatric: A+Ox3, euthymic affect Results & Data Results & Data ([facility]) Vital Signs (Past 12 Hours) Vital Signs Temp Pulse Pulse Resp BP BP Pulse Ox 12/07/20 21:12 69 18 138/81 96 12/07/20 19:35 73 18 115/69 96 12/07/20 19:22 36.8 C 79 18 123/73 96 CBC Results Results Complete Blood Count Results: RBC 4.11 M/uL (4.2-5.4) L 12/08/20 WBC 4.35 K/uL (4.8-10.8) L 12/08/20 Hgb 12.1 g/dL (12.0-16.0) 12/08/20 Hct 37.0 % (37-47) 12/08/20 Plt Count 258 K/uL (130-400) 12/08/20 Chemistry (BMP) Results BMP Results: Sodium 140 mmol/L (136-145) 12/08/20 Potassium 4.1 mmol/L (3.5-5.1) 12/08/20 Chloride 108 mmol/L (98-107) H 12/08/20 BUN 15 mg/dl (7-18) 12/08/20 Creatinine 0.73 mg/dl (0.6-1.2) 12/08/20 Glucose 102 mg/dl (70-99) H 12/08/20 Code Status & VTE Plan VTE Prophylaxis Plan VTE Prophylaxis will be ordered: Yes Supervising Physician Co-Signing Physician Notes Patient seen and examined, chart reviewed, case discussed with Dr. Boone and I agree with his assessment and plan as above. In brief, patient is an 79yo female presenting with episode of dysarthria, right vision blurring, left hand tingling, [place] and confusion. Has had similar episodes in the past - [place]OD is new from prior episodes. Still with tingling in fingertips, otherwise symptoms have completely subsided. Presented as Code Stroke On exam she is afebrile, HD stable, NAD Skin warm dry and intact HEENT - NC/AT, PERRL, MMM, Neck supple, no JVD, no bruits Heart - +S1/S2, regular, no m/r/g Lungs - CTA Abd - +BS, soft, NT/ND Ext - No edema Neuro - CN II 0 XII intact, MS intact 5/5 in UE/LE bilaterally, still with dysesthesia in left finger tips Labs and images reviewed. CT head as well as CTA head and neck unremarkable Assessment/Plan Ddx to include CVA, TIA, complex migraine -Check MRI, echo, AIC and Lipid panel -Continue Plavix -Neurology consultation appreciated -Remainder of plan as above Resident Activity Tracking Resident Involvement: Resident Care Provided Care Provided: [facility]
[2020-12-07] MEDS ORDERED: PHARMACIST DISCHARGE MED REC CONSULT PRN (22:33)
[2020-12-07] MEDS ORDERED: ACETAMINOPHEN 325 MG TAB PO PRN (22:33)
[2020-12-08 07:51] VITALS: O2SAT 95
[2020-12-08 08:18] LABS: Basophils # (auto) 0.02 K/uL (0-0.2); Basophils % (auto) 0.5 %; Eosinophils # (auto) 0.21 K/uL (0-0.5); Eosinophils % (auto) 4.8 %; Hemoglobin 12.1 g/dL (12.0-16.0); Immature Granulocytes # (auto) 0.01 K/uL (0.00-0.02); Immature Granulocytes % (auto) 0.2 %; Lymphocytes # (auto) 0.84 K/uL (1.2-3.4); Lymphocytes % (auto) 19.3 %; Mean Corpuscular Hemoglobin 29.4 pg (25-34); Mean Corpuscular Hgb Conc 32.7 g/dL (32-36); Mean Platelet Volume 9.7 fL (7.4-10.4); Monocytes # (auto) 0.56 K/uL (0.11-0.59); Monocytes % (auto) 12.9 %; Neutrophils # (auto) 2.71 K/uL (1.4-6.5); Neutrophils % (auto) 62.3 %; Platelet Count 258 K/uL (130-400); Red Blood Count 4.11 M/uL (4.2-5.4); White Blood Count 4.35 K/uL (4.8-10.8)
--- NOTE | 2020-12-08 08:29 | Neurology Consultation ---
Date of Consultation December 08, 2020 Assessment & Plan (1) Stroke-like symptoms: (2) Headache: (3) Arm numbness left: (4) Speech abnormality: (5) Vision abnormalities: This patient had the onset of symptoms December 07 consisting of nonspecific blurry vision, word-finding difficulties, and dysesthesias of the left hand. These were followed by a nonspecific bifrontal headache and today with some right face and arm dysesthesias. Today, the headache, vision, and speech issues have resolved. She still has some left hand dysesthesias. CT of the head and CT angiography were unremarkable. Blood pressure and sugar are largely controlled as well. Neurologic examination today is nonfocal with no meningeal signs or encephalopathy. Patient had a similar episode (with less of a headache ) in February of 2020 with a normal MRI then. In addition the MRI shows minimal old small vessel ischemic disease considering her age. She does have a history of hypertension, diabetes, and dyslipidemia. The etiology of this event is likely vaso spasm and complicated migraine. I am not convinced that this represents a TIA in a classic sense. The bilateral dysesthesias (left hand and right face and arm) are little unusual but could be present in a complicated migraine with vasospasm bilaterally. She does have some neck pain but no signs of radiculopathy or myelopathy. Recommendations: 1. MRI of the brain without contrast to evaluate for acute stroke and any change compared to February of 2020 2. Echocardiogram 3. Hemoglobin A1c and fasting lipid profile are pending. 4. for now, continue clopidogrel 75 mg daily but will reconsider this depending on the MRI results. 5. there is no indication for anticoagulation. 6. Increase activity as able. 7. follow-up regarding the pulmonary nodule seen on CT scan. I will leave this to primary care. 8. consider MRI of the cervical spine (as an outpatient) depending on her clinical course and the above test results. 9. Consider initiation of verapamil for vasospasm prevention. I can follow up as an outpatient. Overall, I spent a total of 60 minutes with this case including review of records, review of previous MRI films, direct evaluation the patient at bedside, and discussion of the case with the patient and RN at bedside and Dr. Foy including differential diagnosis and treatment options. History of Present Illness Reason for Consultation: Patient is an 79-year-old, who I was asked to see at the request of Drs. Minaya and Paolo, for neurologic consultation regarding stroke-like symptoms. Requesting Physician: Dr. Boone Attending Physician: Nicolasa Minaya, DO History of Present Illness This patient has a history of hypertension, diabetes, and dyslipidemia over the last 5 days a years. She is fairly well controlled with these issues. In addition, she started getting migraine headaches in her 20s. significant migraines occurred about every 3-6 months up until menopause in her early 50s. A typical migraine would consist of some pain in her bifrontal head region with photophobia sonophobia nausea and occasionally vomiting. She would have to lay down in a dark quiet. They would last up to a day or 2. she did take amitriptyline in her 40s which helped but she is off this now since her headaches have mostly resolved since her 50s. Over the last year so she has had episodes occurring once every 2 months or so consisting of some sudden onset of blurry vision and difficulty speaking. She knows what she wants to say but the words do not come. The symptoms will last a day or so and then resolve usually without any headache before, during, after. In February of 2020 she had a particularly severe episode blurry vision and difficulty speaking with some headache ( which I gleaned from the chart), although she denied having A headache. The blurry vision and difficulty speaking comes 1st, the headache came 2nd and was also associated with some right facial numbness and right upper extremity numbness. At that time an MRI of the brain was obtained and showed no acute stroke and some minimal old small vessel ischemic disease considering her age. An EEG was unremarkable. Patient tried some aspirin 81 mg daily but gave GI upset, so it was discontinued. Patient was doing fairly well until yesterday, December 07 what about 1630 she had the onset of the blurry vision in both eyes as well as the inability to get words out. She knew what she wanted to say and was awake and alert but could not get the words out. She calls this "confusion" but it was clear that she did not have any encephalopathy or confusion cognitively. The symptoms lasted p erhaps 5-10 minutes and she laid down to take a rest. She noted the onset of a bifrontal headache consisting of a "gnawing" pain she did not have nausea, vomiting, or photophobia. She was convinced to come to the emergency room by her family. She arrived to the emergency room December 07 at 1922, with a temperature of 36.8, pulse 79 and regular, respiratory rate 18 in comfortable, blood pressure 123/73 and O2 saturation 89%. Her NIH stroke scale was 0 and her symptoms largely resolved. TPA was considered but decided against because of the timeframe and the resolution of her symptoms. CT scan of the head was unremarkable for acute change. CT angiography of the head neck showed no vessel stenoses or anomalies. Incidentally, a 4 mm right upper lobe pulmonary nodule was seen. CBC showed mild anemia. Sodium was 130, BUN 21, glucose 122. Urinalysis was unremarkable. She had no issues overnight and was a normal sinus rhythm in the 60s. Blood pressure currently is 122/80 and she is afebrile. O2 saturation is 95%. Currently she still has a little bit of headache waxing and waning bifrontally but it is very mild. She has no speech issues or blurry vision however there are some right eye floaters occasionally noted. She has some dysesthesias and numbness in her right face and right upper extremity of a mild nature which wax and wane. She has some left hand dysesthesias as well. Allergies Allergy/AdvReac Type Severity Reaction Status Date / Time niacin Allergy Unknown Verified 12/07/20 20:03 Home Medications Medication Instructions Recorded Confirmed Type ferrous sulfate 325 mg (65 mg 162.5 mg PO DAILY tab 05/09/19 12/07/20 History iron) tablet escitalopram oxalate 10 mg tablet 5 mg PO DAILY #45 tab 12/26/19 12/07/20 Rx (Lexapro) atorvastatin 10 mg tablet (Lipitor) 10 mg PO DAILY #90 tab 06/21/20 12/07/20 Rx omeprazole 20 mg capsule,delayed 20 mg PO DAILY #90 cap 09/20/20 12/07/20 Rx release celecoxib 200 mg capsule (Celebrex) 200 mg PO DAILY #14 cap 11/26/20 12/07/20 Rx cholecalciferol (vitamin D3) 50 50 mcg PO DAILY 12/07/20 12/07/20 History mcg (2,000 unit) tablet (Vitamin D3) garlic 0 mg PO DAILY 12/07/20 12/07/20 History vitamin B complex 1 tab PO DAILY 12/07/20 12/07/20 History Patient History Medical History Bowel obstruction Dyslipidemia Family history of melanoma Gastroesophageal reflux disease History of transient cerebral ischemia Obesity, Class I, BMI 30-34.9 Type 2 diabetes mellitus Surgical History History of appendectomy History of colonoscopy History of dilation and curettage History of femoral hernia repair 2014. with mesh. Dr Amato History of loop electrical excision procedure (LEEP) History of ovarian cystectomy Family History Aunt Breast cancer Colorectal cancer Diabetes Sister Lupus erythematosus Brother Skin cancer (melanoma) Brain cancer Denies family history of Ovarian cancer Prostate cancer Myocardial infarction Social History Smoking Status: Former smoker Tobacco Type: Cigarettes Second Hand Exposure: No; Hx Alcohol Use: No Hx Substance Use: No Preferred Language: Occitan Communication Ability: Effective Visual Impairment: Limited Hearing Ability: Normal Scout Required: No Beliefs That Will Affect Care: None marital status: / marital status details: remarried Current Living Situation: Spouse current occupational status: retired How many Children do You have: 0 Other Information That Helps Us Care for You: No Feels Safe at Home: Yes Childhood Exposure to Second-Hand Smoke: Yes caffeine: Yes Dental Care, Regularly: Yes Physical Activity Frequency: Does not Exercise Seatbelt Use: always Sunscreen Use: Yes Assistive Devices: None Review of Systems Constitutional: no fever, no fatigue and no weakness Eyes: no diplopia, no eye pain and no worsening vision Ear, Nose, Mouth, Throat: no ear pain, no tinnitus, no hearing loss, no dizziness, no snoring, no hoarseness and no dysphagia Respiratory: no cough and no dyspnea Cardiovascular: no chest pain, no palpitations and no lightheadedness Gastrointestinal: no abdominal pain, no nausea and no vomiting Genitourinary: no dysuria, no urinary frequency and no urinary incontinence Musculoskeletal: no back pain, no neck pain, no radicular pain, no joint pain and no myalgia Integumentary: no rash and no lesions Neurologic: no gait abnormality, no localized weakness, no generalized weakness, no tingling, no numbness, no tremor(s), no abnormal movements, no headache(s), no abnormal speech, no confusion and no memory loss Psychiatric: no depression, no irritability, no anxiety, no difficulty concentrating, no confusion and no hallucinations Endocrine: no fatigue and no flushing Hematologic / Lymphatic: no easy bleeding and no easy bruising Allergy / Immunological: no urticaria and no problem reported Exam (Neuro) Physical Exam: The patient is right-handed. The patient is awake, alert, and attentive. Speech is normal without any aphasia or dysarthria. The patient can name objects, repeat phrases, and has normal spontaneous speech. Mentation and thought processes are intact, with orientation to person, place and time, and normal fund of knowledge. Attention and concentration are normal. Mood and affect are normal and appropriate. General appearance and grooming are normal. Short and long-term memory are intact. Pupils are 4 mm bilaterally and reactive to light. Extraocular eye muscles are intact without nystagmus. Visual acuity and visual black seem normal grossly to confrontation. There are no deficits to sensation in the face in all 3 distributions of the fifth cranial nerve bilaterally. Corneal reflexes are positive bilaterally. Facial strength and symmetry was normal bilaterally. Hearing seems normal bilaterally. Palate moves well without asymmetry. There is normal sternocleidomastoid and trapezius (shoulder shrug) strength bilaterally. Tongue is midline with good strength bilaterally. Neck has a full range of motion without discomfort. There are no cervical bruits bilaterally. There are no cranial or ocular bruits. Heart is without murmur. There is a regular rhythm and rate. Cervical, thoracic, and lumbar spine are nontender to palpation. Gait was not tested but stance sitting up in bed is unremarkable. With outstretched arms there is no drift. There are no resting, postural, or action tremors. There is no ataxia with finger to nose testing. There is good facility in the hands. No other abnormal involuntary movements are noted. Motor strength is 5/5 diffusely in the arms bilaterally including deltoids, biceps, triceps, brachioradialis, wrist flexors and extensors, linen attendant, and intrinsic hand muscles. Motor strength is 5/5 diffusely in the legs bilaterally including hip flexors, quadriceps, hamstrings, gastrocnemius, tibialis anterior, tibialis posterior, and Peroneii muscles. Toe extensors are normal and there is good bulk in the extensor digitorum brevis muscles bilaterally. The limbs have good tone without rigidity or spasticity. There is no atrophy noted in the muscles. Muscle bulk is normal, there is no tenderness to palpation, no myotonia to percussion, and no fasciculations seen. Sensory examination is intact to touch and pin throughout all 4 limbs diffusely. Reflexes are 1/4 in the biceps, triceps, brachioradialis, quadriceps, and Achilles tendons bilaterally. There is no clonus bilaterally. Toes are downgoing with plantar stimulation bilaterally. Peripheral pulses are present and of normal quality distally in all 4 limbs. There is no peripheral edema noted in the limbs. Results & Data ([facility]) Vital Signs (Past 12 Hours) Vital Signs Temp Pulse Pulse Resp BP Pulse Ox 12/08/20 07:50 36.5 C 64 18 122/80 95 12/08/20 03:04 36.7 C 70 16 138/79 96 12/08/20 01:11 65 12/07/20 22:58 36.7 C 67 16 158/90 H 94 12/07/20 21:57 73 18 132/83 95 12/07/20 21:12 69 18 138/81 96 PG Care Time/CCT Total # of Minutes Spent Total Time Spent with Patient: Total time spent is greater than 50% in coordination of care (as documented) at patient's floor/unit and/or counseling patient: Coding Level of Care Code INT OBSERVATION CARE 70M LVL 3 Diagnoses Stroke-like symptoms R29.90 Arm numbness left R20.0 Headache R51.9 Speech abnormality R47.9 Vision abnormalities H53.9 Time Spent (min) 60
[2020-12-08 08:44] LABS: Calcium 8.3 mg/dl (8.5-10.1); Creatinine Clr Calc Pharmacy 60.8 ml/min; Est GFR (African American) 89.5 ml/min; Est GFR (Non-African American) 77.2 ml/min; Potassium 4.1 mmol/L (3.5-5.1)
[2020-12-08 08:51] LABS: Estimated Average Glucose 134 mg/dl; Hemoglobin A1C 6.3 % (4.5-5.6)
[2020-12-08] MEDS ORDERED: CLOPIDOGREL BISULFATE 75 MG TAB PO SCH (09:00)
[2020-12-08] MEDS ORDERED: ESCITALOPRAM OXALATE 10 MG TAB PO SCH (09:00)
[2020-12-08] MEDS ORDERED: CLOPIDOGREL BISULFATE 75 MG TAB PO ONE (09:00)
[2020-12-08] MEDS ORDERED: ATORVASTATIN 10 MG TAB PO SCH (09:00)
[2020-12-08] MEDS ORDERED: PANTOprazole 40 MG TAB PO SCH (09:00)
--- NOTE | 2020-12-08 09:37 | Electrocardiogram Report ---
Test Reason : Blood Pressure : / mmHG Vent. Rate : 071 BPM Atrial Rate : 071 BPM P-R Int : 190 ms QRS Dur : 076 ms QT Int : 396 ms P-R-T Axes : 069 027 041 degrees QTc Int : 430 ms Normal sinus rhythm Possible Septal infarct , age undetermined Abnormal ECG When compared with ECG of 28-NOV-2013 00:59, Possible Septal infarct is now Present Confirmed by Enmanuel Cruz ([id number]) on 12/08/2020 9:37:32 AM Referred By: REFERRED SELF Confirmed By:Enmanuel Cruz
--- NOTE | 2020-12-08 09:42 | Hospitalist Progress Note ---
Date of Service December 08, 2020 Assessment & Plan (1) Stroke-like symptoms: Plan: 79 yo F here with pMHx. of DMII (diet controlled), prior smoking history, anemia, reflux, dyslipidemia, HTN and OA presenting with recurrent episodes of right sided vision blurring, word finding difficulty concerning for stroke. admit to med/surg with tele Stroke like symptoms differential includes stroke vs. complex migraine vs. seizure activity although this is unlikely as she has no prior history of this CT Head: with no acute findings CTA Head and Neck: No evidence of focal occlusion or significant stenosis within intracranial arteries NSR on exam - stroke protocol enacted, not given TPA as her symptoms resolved - seen by telestroke in the ER - MRI w/ & w/o ordered - EEG ordered - continue statin; ASA ordered once although she is not able to tolerate chronically and we will initiate Plavix tomorrow AM - Neurology consulted - PT, OT, speech ordered - allow for permissive hypertension DM II diet controlled - continue to monitor blood sugars Dyslipidemia - continue home statin Reflux - continue home PPI Depression - continue home escitalopram Pulmonary nodule CT neck with incidental finding of 4mm pulmonary nodule, patient notified - consider dedicated CT chest during hospitalization or as an outpatient and follow screening guidelines going forward Diet: DM II DVT: SCD's Code: full Dispo: pending neuro workup (2) Headache: (3) Type 2 diabetes mellitus: (4) Anemia: (5) Depression with anxiety: (6) Hypertension: Admission and Anticipated Discharge Date Admission Date: December 07, 2020 Subjective Patient seen and evaluated at bedside this morning. Feels well overall, reports a brief episode of left-sided facial numbness earlier this morning that resolved within a few minutes. Other than this, no new complaints. Denies weakness, change in vision, slurred speech, confusion, headache, fever, and chills. Patient denies CP, SOB, abdominal pain, nausea, vomiting, and diarrhea. Review of Systems Review of Systems: See HPI Physical Exam Physical Exam: Constitutional: well-appearing, no acute distress CV: regular rhythm, no murmur appreciated, extremities well-perfused, no LE edema Resp: CTABL, no wheezes/rales/rhonchi appreciated, no increased work of breathing Neuro: AOx4, no focal neurological deficits appreciated, CN2-12 grossly intact, UE and LE strength 5/5 BL Psych: cooperative, pleasant, appropriate rate/volume/quantity of speech, speech not slurred Results & Data Results & Data ([facility]) Vital Signs (Past 12 Hours) Vital Signs Temp Pulse Pulse Resp BP Pulse Ox 12/08/20 08:00 66 12/08/20 07:50 36.5 C 64 18 122/80 95 12/08/20 03:04 36.7 C 70 16 138/79 96 12/08/20 01:11 65 12/07/20 22:58 36.7 C 67 16 158/90 H 94 12/07/20 21:57 73 18 132/83 95
[2020-12-08] MEDS ORDERED: GADOBUTROL 65ML VIAL IV ONE (09:59)
--- NOTE | 2020-12-08 10:35 | Magnetic Resonance Report ---
MRI OF THE BRAIN WITHOUT AND WITH IV CONTRAST CLINICAL HISTORY: stroke like symptoms COMPARISON STUDY: MRI of the brain March 08, 2020. Head CT and CTA of the head December 07, 2020. TECHNIQUE: Utilizing a 1.5 Loulou magnet and dedicated coil, multiplanar, multiecho imaging of the br ain was performed pre and postcontrast administration. IV administration of 9 mL of Gadavist contras t was uneventful. FINDINGS: There are no foci of restricted diffusion to suggest acute infarct. No acute intracranial h emorrhage, midline shift or mass effect is present. Ventricular system is unremarkable. Basal cistern s are patent. There are no extra axial collections. Flow-voids for the major intracranial vessels are present. Postcontrast images are mildly compromised by motion artifact. No acute intracranial mass i s noted. There is no pathologic enhancement. A suspected sebaceous cyst of the right posterior scalp is noted. Multiple small white matter T2 hyperintense foci suggest small vessel disease. These are si milar to prior MRI. IMPRESSION: 1. No acute intracranial findings. 2. No intracranial mass or pathologic enhancement. 3. No significant change since MRI of March 08, 2020. ACT 112: Negative or not required by law. Electronically signed by: Marvin Fung M.D. 12/08/2020 10:34 AM
[2020-12-08 12:00] VITALS: BP 134/82; TEMP 97.5
[2020-12-08] MEDS ORDERED: STROKE PATIENT DISCHARGE STA (16:18)
[2020-12-08 17:00] VITALS: PULSE 76
--- NOTE | 2020-12-08 18:35 | Billing Data ---
Date of Service December 08, 2020 Coding Level of Care Code 23072 OBS Care - Discharge
--- NOTE | 2020-12-08 19:04 | Discharge Summary ---
Date of Service December 08, 2020 Admission HPI Per Admitting Provider Jayashree Renee is here today with her and daughter for arm numbness, vision changes, and headache. She has had 5 episodes over the last year. Her episode started at 4:30 PM with right sided vision blurring and numbness of the face and left hand. She has had cataract surgery on the right. She had trouble speaking described as word finding and slow speech although she was not aware of this but her was. She had numbness of her face and left fingers (1-5) and developed a headache which she has not had with prior episodes. The headache was frontal, minor and without associated photophobia or phonophobia. This headache was not like any headache she has had in the past. She did have bad headaches prior to menopause, never with an aura. After the episode she felt fatigued and went to sleep for several hours. She is currently only having numbness in her left hand all other symptoms have resolved. Prior workup of her episodes has included: EEG on 03/20/2020 that was read as normal. MRI with no acute intracranial finding on 03/08. Event monitor on 04/27/20 with no arrhythmias noted. Denies: recent illness, no recent tick bites Principal Diagnosis Complicated migraine Discharge Exam In general she is awake and alert pleasant no distress. HEENT normocephalic atraumatic mucous membranes moist. Breathing unlabored no accessory muscle use good effort. Skin shows no rashes no pallor or icterus. Neuro with no focal deficits. See Dr. Fisher neurologic exam for further detail. Discharge Data Allergies Allergy/AdvReac Type Severity Reaction Status Date / Time niacin Allergy Unknown Verified 12/07/20 20:03 Consultations 12/07/20 20:34 ED Decision to Admit Stat 12/07/20 22:33 Consult Neurology Routine Ordered Studies 12/07/20 18:53 CT angio head w con Stat CT angio neck with con Stat CT head/brain wo con Stat 12/08/20 22:33 MR brain wo/w con Routine Hospital Course (1) Stroke-like symptoms: Evaluated for TIA/CVAfortunately after further review seems much more consistent with complicated migraine (no stroke, vascular risks seem to be well controlled, no overt atherosclerosis of significance on imaging, echo is pending but doubt that it would show a cardioembolic source, and did have a headache at the time of symptoms)stable for homeverapamil for migraine prophylaxis/risk reduction. Discussed with patient echo is pending, but we discussed that it would be extremely unlikely to have any immediate plan changing type findings, and that it would be okay to follow this up as an outpatient. neurology assessment and plan: (Dr Fisher) This patient had the onset of symptoms December 07 consisting of nonspecific blurry vision, word-finding difficulties, and dysesthesias of the left hand. These were followed by a nonspecific bifrontal headache and today with some right face and arm dysesthesias. Today, the headache, vision, and speech issues have resolved. She still has some left hand dysesthesias. CT of the head and CT angiography were unremarkable. Blood pressure and sugar are largely controlled as well. Neurologic examination today is nonfocal with no meningeal signs or encephalopathy. Patient had a similar episode (with less of a headache ) in February of 2020 with a normal MRI then. In addition the MRI shows minimal old small vessel ischemic disease considering her age. She does have a history of hypertension, diabetes, and dyslipidemia. The etiology of this event is likely vaso spasm and complicated migraine. I am not convinced that this represents a TIA in a classic sense. The bilateral dysesthesias (left hand and right face and arm) are little unusual but could be present in a complicated migraine with vasospasm bilaterally. She does have some neck pain but no signs of radiculopathy or myelopathy. Recommendations: 1. MRI of the brain without contrast to evaluate for acute stroke and any change compared to February of 2020 2. Echocardiogram 3. Hemoglobin A1c and fasting lipid profile are pending. 4. for now, continue clopidogrel 75 mg daily but will reconsider this depending on the MRI results. 5. there is no indication for anticoagulation. 6. Increase activity as able. 7. follow-up regarding the pulmonary nodule seen on CT scan. I will leave this to primary care. 8. consider MRI of the cervical spine (as an outpatient) depending on her clinical course and the above test results. 9. Consider initiation of verapamil for vasospasm prevention. I can follow up as an outpatient. Total Time Total Time Spent Total Time Spent (In Minutes): <30 Discharge Plan Discharge Items Patient Disposition: Home - Self-Care Reason For Visit: STROKE LIKE SYMPTOMS Discharge Diagnosis: Complex migraine Activity: Resume your previous activity Non-emergency contact: Primary Care Provider and Neurologist Call non-emergency contact if: your symptoms worsen Follow-up/Referrals: Rip Cloud MD [Primary Care Provider] - Ayaan Fisher MD [Physician] - Diet: Carb Consistent or DM2 Addtl Attending Provider Instructions: You were admitted to the hospital for stroke-like symptoms. You were seen by neurology, and testing including imaging was performed to see if your symptoms were due to stroke. We did not find evidence of stroke, and neurology felt your symptoms were likely due to complex migraine. We will arrange follow-up appointments with your primary care provider as well as with Dr. Fisher (neurology) so that you can be evaluated over time and have your symptoms managed. A discharge summary will be sent to your primary care physician to ensure continuity of care. Please bring this discharge summary with you to your next office appointment so that your provider can review it at that time. Follow-up appointments: We have requested a follow-up appointment with your primary care physician within one week of discharge. Please call their office if you do not hear from them by Thursday. We have also requested an appointment with Dr. Fisher, the neurologist who saw you in the hospital. If you do not hear from his clinic schedulers by Thursday, please call their office at . Keep all your follow-up appointments as already scheduled. If you cannot make an appointment, notify your provider. Medications: Your medication list has been reviewed and reconciled upon discharge to ensure accuracy and continuity of care. An updated list of all your medications is included with your hospital discharge paperwork. Please review this list closely, and make note of any changes. * We sent a new medication for migraine prevention called verapamil ER (extended release) to your pharmacy. Take verapamil ER (120mg) one tablet daily. When you follow up with Dr. Fisher in neurology clinic, he will help you decide if your dose of verapamil ER should be adjusted over time. Take your medications as instructed; do not skip a dose of your medicines. Make sure all of your doctors know every medicine you are taking (including atzf-mzy-snnlhuf medicines, vitamins, and supplements). Call your primary care provider before taking any new medicines (including jzlo-cam-appgdan medicines, vitamins, and supplements), because some of these may interact with your current medications, or may make your symptoms worse. Tell your primary care provider if you cannot afford your medications. CONTACT YOUR PRIMARY CARE PROVIDER if you experience any of the following: Facial droop, slurred speech, vision loss Sudden-onset numbness, tingling, or weakness that is concerning to you Difficulty following your treatment plan, or difficulty taking medications CALL 911 OR GO TO THE EMERGENCY DEPARTMENT if you experience any of the following: Sudden, severe abdominal pain or nausea/vomiting Severe chest pain, or chest pain that radiates (moves) to your jaw or arm Sudden, severe shortness of breath or difficulty breathing Thank you for allowing us to participate in your care. Pending Studies at Discharge: Yes Stand-Alone Forms: [facility] Medications and DC Order Prescriptions: New verapamil 120 mg capsule,ext rel. pellets 24 hr 120 mg PO DAILY Qty: 30 RF: 1 Continued escitalopram oxalate [Lexapro] 10 mg tablet 5 mg PO DAILY Qty: 45 RF: 3 atorvastatin [Lipitor] 10 mg tablet 10 mg PO DAILY Qty: 90 RF: 3 omeprazole 20 mg capsule,delayed release(DR/EC) 20 mg PO DAILY Qty: 90 RF: 3 celecoxib [Celebrex] 200 mg capsule 200 mg PO DAILY Qty: 14 RF: 1 ferrous sulfate 325 mg (65 mg iron) tablet 162.5 mg PO DAILY RF: 0 vitamin B complex Tablet 1 tab PO DAILY RF: 0 garlic Tablet 0 mg PO DAILY RF: 0 cholecalciferol (vitamin D3) [Vitamin D3] 50 mcg (2,000 unit) Tablet 50 mcg PO DAILY RF: 0 Discharge Orders: Discharge Order (Routine); Ordered 12/08/20 Ordered By: To Sanchez/Other Patient Handouts: A1C, Managing Type 2 Diabetes, Symptoms of Stroke Admission Data Admit Date/Time: 12/07/20 21:21 Attending Provider: Emir Foy Admit Provider: Ajit Boone Primary Care Provider: Rip Cloud Other Providers: Nicolasa Minaya Emile Coding Level of Care Code 48622 OBS Care - Discharge Diagnoses Stroke-like symptoms R29.90
--- NOTE | 2020-12-09 01:57 | Billing Data ---
Date of Service December 07, 2020 Coding Level of Care Code INT OBSERVATION CARE 50M LVL 2
== END 2020-12-08 17:37 | disposition home or self-care (01) ==
LOC: ED 18:59 → 2N 18:59 → SUATTDRO 21:21 → 2N 22:07

== ENCOUNTER 2023-08-03 16:13 | Observation (INO) ==
[2023-08-03] MEDS: ONDANSETRON INJ 2 MG/ML 2 ML VIAL ONE (16:49)
[2023-08-03 17:12] LABS: Basophils # (auto) 0.03 K/uL (0.00-0.20); Basophils % (auto) 0.4 %; Eosinophils # (auto) 0.24 K/uL (0.00-0.50); Eosinophils % (auto) 3.5 %; Hematocrit (blood only) 32.2 % (37.0-47.0); Hemoglobin 10.6 g/dl (12.0-16.0); Immature Granulocytes # (auto) 0.03 K/uL (0.01-0.20); Immature Granulocytes % (auto) 0.4 %; Lymphocytes # (auto) 1.13 K/uL (1.20-3.40); Lymphocytes % (auto) 16.5 %; Mean Corpuscular Hemoglobin 29.4 pg (25.0-34.0); Mean Corpuscular Hgb Conc 32.9 g/dL (32.0-36.0); Mean Corpuscular Volume 89.4 fL (80.0-100.0); Mean Platelet Volume 9.5 fL (9.4-12.4); Monocytes # (auto) 0.77 K/uL (0.11-0.59); Monocytes % (auto) 11.3 %; Neutrophils # (auto) 4.64 K/uL (1.40-6.50); Neutrophils % (auto) 67.9 %; Platelet Count 319 K/uL (130-400); RDW Standard Deviation 45.5 fL (36.4-46.3); White Blood Count 6.84 K/ul (4.8-10.8)
--- NOTE | 2023-08-03 17:14 | XRay Report ---
XR knee RT 3V CLINICAL HISTORY: right knee pain and swelling TECHNIQUE: 3 views of the right knee were obtained. Comparison: None available at the time of this dictation. FINDINGS: There is no evidence of an acute fracture. Joint spaces are well-preserved. A suprapatellar effusion is seen. Vascular calcifications are noted. IMPRESSION: Suprapatellar effusion is seen without evidence of underlying fracture. ACT 112: Negative or not required by law. Electronically signed by: Scott Chaparro M.D. 08/03/2023 5:13 PM
[2023-08-03 17:32] LABS: Alanine Aminotransferase 12 U/L (7-52); Albumin Globulin Ratio 1.6 (0.9-2); Albumin Level 3.8 gm/dl (3.4-5.0); Alkaline Phosphatase 42 U/L (34-104); Anion Gap 6 (3-11); Aspartate Aminotransferase 17 U/L (13-39); BUN Creatinine Ratio 23.1 (10-20); Bilirubin,Total 0.4 mg/dl (0.2-1.0); Blood Urea Nitrogen 18 mg/dl (6-23); C Reactive Protein < 0.50 mg/dl (0-0.5); Calcium 8.8 mg/dl (8.6-10.3); Carbon Dioxide 27 mmol/L (21-32); Chloride 100 mmol/L (98-107); Creatinine Clr Calc Pharmacy 56.9 ml/min; Est GFR (African American) 80.9 ml/min; Est GFR (Non-African American) 69.8 ml/min; Globulin 2.4 gm/dl (2.5-4.0); Glucose 102 mg/dl (70-99(Fasting)); Potassium 4.1 mmol/L (3.5-5.1); Sodium 133 mmol/L (136-145); Total Protein 6.2 gm/dl (6.0-8.3)
[2023-08-03] MEDS: oxyCODONE HCL IR 5 MG TAB (IMMEDIATE RELEASE) PO STA (18:10)
--- NOTE | 2023-08-03 18:24 | Emergency Department Note ---
Impression & Plan Acute pain of right knee, Osteoarthritis, Knee effusion, right ED Provider Note NAME: DANISH ANDREWS AGE: 82 SEX: Female INFORMANT: Patient and family ED PROVIDER(S): Navid Medina MD CHIEF COMPLAINT: Right knee pain PLAN: Disposition: Admit Outpatient prescription management: none Referral: None MEDICAL DECISION MAKING: Patient presented with severe pain in the right knee. She has had ongoing issues and is pending Ortho evaluation for knee replacement. She received IV fentanyl prehospital and was feeling somewhat better with this. She still had severe pain with range of motion. There was a right knee joint effusion. She was nauseated and was given IV Zofran. Patient was going to get Tylenol however she did take this prior to arrival by about 2 hours. The patient had unremarkable CBC, chemistry panel, and inflammatory markers. X-ray imaging revealed no evidence of fracture or dislocation. There was a knee effusion noted. Patient and I had a discussion about analgesia along with the family. We also talked about trying a knee immobilizer. Patient was given an oral dose of oxycodone as she has had a prescription of this in the past. Patient was also ordered a knee immobilizer and unfortunately cannot tolerate this due to the discomfort in her right knee. I discussed the situation with the game breeding farm manager. Unfortunately she cannot go directly to rehab and would require admission and PT OT evaluation here. Orthopedics can also be consulted at that time. I did review the patient's situation and sent imaging to Dr. Madrid who is on-call for orthopedics. Discussed recent MRI findings. Patient can be seen by the team in the hospital for further management. Consultation was made with Dr. Rip Canas of the [facility] service. Patient was evaluated in the ER for further management. Care/management discussed with: game breeding farm manager Level of care consideration(s): After review of the information above and other included data, I feel the patient requires escalation of care to admission. Patient cannot ambulate. Triage Nursing notes: reviewed and agree them. Vital Signs: reviewed and remarkable for no significant abnormalities Additional History obtained from: Patient's family Chronic Medical/Social Conditions affecting care: Osteoarthritis Prior/ Outside/ External records reviewed: none Differential Diagnosis: Fracture, subluxation, dislocation, contusion, ligamentous injury, neurovascular, compartment syndrome, rhabdomyolysis, gouty arthritis, septic joint, as well as other pathologies. Diagnostics, independently interpreted by me: ECG: none Cardiac Monitoring: none Medical decision rules: none Imaging studies: X-ray imaging of the right knee reveals a superior effusion. Degenerative changes noted. No fracture. HPI: 82 year old Female arrives for evaluation of severe right knee pain. Patient has been dealing with swelling and fluid on the right knee. This has been drained twice with most recently on the eighth of this month. Patient also had an MRI performed. Family notes that when she had her aspiration done there was blood in it. Patient was at home today and shifted in the kitchen. She is unsure if she twisted. There was no fall reported. When the patient went to the bathroom she had severe pain trying to get up and could not put any weight on her leg. Pain is anterior and just superior to the patella. Pain is rated a 10 out of 10. Patient was given fentanyl by prehospital provider. Patient does note some nausea after the fentanyl. Pt denies LOC, headache, visual changes, neck pain, chest pain, breathing difficulties, nausea, vomiting, abdominal pain, back pain, other extremity pain, numbness, weakness, open wounds, active bleeding, or other complaints. PAST MEDICAL HISTORY: See Below, osteoarthritis PAST SURGICAL HISTORY: See Below, SOCIAL HISTORY: See Below, lives with family HOME MEDICATIONS: See Below ALLERGIES: See Below VITALS: See Below PHYSICAL EXAMINATION: GENERAL: Awake, alert, well-appearing, in no distress HENT: Normocephalic, atraumatic. Oropharynx unremarkable. EYES: Normal conjunctiva. Sclera non-icteric. NECK: Inspection normal. Non-tender. Supple. No nuchal rigidity. FROM. No masses. RESPIRATORY: Clear to auscultation. No wheezes. No rales. Normal respiratory effort. CARDIAC: Normal rate. Normal rhythm. No murmurs. No rubs. Extremities warm and well perfused. Pulses equal. No JVD. GI: Soft, non-distended. No tenderness to palpation. No rebound or guarding. No masses. RECTAL: Deferred. MUSCULOSKELETAL: Atraumatic. Chest examination reveals no tenderness. The back is symmetrical on inspection without obvious abnormality. There is no CVA tenderness to palpation. No joint edema. LOWER EXTREMITIES: There is a right knee effusion noted on examination. No erythema or warmth. Range of motion of the right knee is severely limited secondary to pain in the anterior aspect. Unable to fully assess ligamentous stability given the patient's pain. Calves are equal size bilaterally and non- tender. No edema. No discoloration. NEURO: Normal sensorium. No sensory or motor deficits noted. SKIN: No rash or jaundice noted. PROCEDURES: none CRITICAL CARE: none OBSERVATION NOTE: none Past Med/Surg History Medical History (Updated 08/03/23 @ 20:36 by Jacob Bell DO) Dyslipidemia Gastroesophageal reflux disease Vision abnormalities Speech abnormality Acute confusion Family history of melanoma History of transient cerebral ischemia Obesity, Class I, BMI 30-34.9 Type 2 diabetes mellitus Bowel obstruction Surgical History History of femoral hernia repair 2014. with mesh. Dr Amato History of ovarian cystectomy History of dilation and curettage History of colonoscopy History of loop electrical excision procedure (LEEP) History of appendectomy Family History Aunt Breast cancer Colorectal cancer Diabetes Sister Lupus erythematosus Brother Skin cancer (melanoma) Brain cancer Denies family history of Ovarian cancer Prostate cancer Myocardial infarction Lung cancer Social History Smoking Status: Former smoker Tobacco Type: Cigarettes Cigarettes Per Day: "Couple packs a day". Quit in 1984.; Second Hand Exposure: No; Do You Dip or Chew Tobacco: No; Tobacco Cessation Education Requested by Patient: No Hx Alcohol Use: Yes Alcohol type: wine Hx Substance Use: No Preferred Language: Syrian Communication Ability: Effective Visual Impairment: Limited Hearing Ability: Normal Clinical Trials Specialist Required: No Beliefs That Will Affect Care: Confucianist Confucianist Beliefs: Presbyterian/Nondenominational. marital status: / marital status details: remarried Current Living Situation: Family Current Living Situation Comment: Lives with Rajaniece Quan Golden. current occupational status: retired How many Children do You have: 0 Other Information That Helps Us Care for You: No Feels Safe at Home: Yes Safety Concerns: Feels Safe At This Time Childhood Exposure to Second-Hand Smoke: Yes caffeine: Yes Dental Care, Regularly: Yes Physical Activity Frequency: Does not Exercise Seatbelt Use: always Sunscreen Use: No Assistive Devices: Cane, Glasses and Hospital Bed Allergies Allergies Allergy/AdvReac Type Severity Reaction Status Date / Time niacin Allergy "flushing" Verified 08/03/23 19:06 sensation from toes to head Home Meds Home Medications Medication Instructions Recorded Confirmed cholecalciferol (vitamin D3) 50 50 mcg PO DAILY 12/07/20 08/03/23 mcg (2,000 unit) tablet (Vitamin D3) vitamin B complex 1 tab PO DAILY 12/07/20 08/03/23 biotin 1 mg tablet 1 mg PO DAILY 08/03/23 08/03/23 fexofenadine 180 mg tablet 180 mg PO DAILY 08/03/23 08/03/23 Previous Rx's Medication Instructions Recorded cvopqnth-rts-ojvxla 5 mg-zeaxanth 1 cap PO DAILY #60 caps 06/02/22 1 mg-bilberry 7.5 mg-herbal capsule ([facility] Formula) escitalopram oxalate 5 mg tablet 5 mg PO DAILY #90 tabs 11/17/22 verapamil 120 mg 24 hr 120 mg PO DAILY #90 caps 01/09/23 capsule,extended release atorvastatin 10 mg tablet (Lipitor) 10 mg PO DAILY #90 tabs 05/13/23 omeprazole 20 mg capsule,delayed 20 mg PO DAILY gastroreflux #90 08/03/23 release caps Results & Data (ED) Vital Signs Vital Signs - 24 hr 08/03/23 16:22 08/03/23 17:00 08/03/23 19:19 Temperature 36.4 C L Temperature Source Oral Pulse Rate 78 80 83 Pulse Rate [Apical] Respiratory Rate 16 18 Respiratory Effort / Characteristics Respiratory Depth Respiratory Pattern Blood Pressure 138/71 Blood Pressure [Right Arm] Blood Pressure Mean 93 Blood Pressure Mean [Right Arm] Pulse Oximetry 94 95 Oxygen Delivery Method Room Air Room Air Sepsis Recent Fever Within 48 Hours No Sepsis New/Unexplained Change in Mental Status N/A Sepsis Action Taken by Nursing No Action Required 08/03/23 19:21 Temperature Temperature Source Pulse Rate Pulse Rate [Apical] 87 Respiratory Rate 18 Respiratory Effort / Characteristics Non-Labored Respiratory Depth Normal Respiratory Pattern Regular Blood Pressure Blood Pressure [Right Arm] 138/82 Blood Pressure Mean Blood Pressure Mean [Right Arm] 100 Pulse Oximetry 94 Oxygen Delivery Method Room Air Sepsis Recent Fever Within 48 Hours Sepsis New/Unexplained Change in Mental Status Sepsis Action Taken by Nursing Laboratory Data 08/03/23 16:55 08/03/23 16:55 Lab Results 08/03/23 Range/Units 16:55 WBC 6.84 (4.8-10.8) K/ul RBC 3.60 L (4.20-5.40) M/uL Hgb 10.6 L (12.0-16.0) g/dl Hct 32.2 L (37.0-47.0) % MCV 89.4 (80.0-100.0) fL MCH 29.4 (25.0-34.0) pg MCHC 32.9 (32.0-36.0) g/dL RDW Std Deviation 45.5 (36.4-46.3) fL RDW Coeff of Sanchez 14.0 (11.5-14.5) % Plt Count 319 (130-400) K/uL MPV 9.5 (9.4-12.4) fL Immature Gran % (Auto) 0.4 % Neut % (Auto) 67.9 % Lymph % (Auto) 16.5 % [place] % (Auto) 11.3 % Eos % (Auto) 3.5 % Baso % (Auto) 0.4 % Neut # (Auto) 4.64 (1.40-6.50) K/uL Lymph # (Auto) 1.13 L (1.20-3.40) K/uL [place] # (Auto) 0.77 H (0.11-0.59) K/uL Eos # (Auto) 0.24 (0.00-0.50) K/uL Baso # (Auto) 0.03 (0.00-0.20) K/uL Immature Gran # (Auto) 0.03 (0.01-0.20) K/uL ESR 11 (0-30) mm/hr Sodium 133 L (136-145) mmol/L Potassium 4.1 (3.5-5.1) mmol/L Chloride 100 (98-107) mmol/L Carbon Dioxide 27 (21-32) mmol/L Anion Gap 6 (3-11) BUN 18 (6-23) mg/dl Creatinine 0.78 (0.6-1.2) mg/dl Est Cr Clr Drug Dosing 56.9 ml/min Est GFR ( Amer) 80.9 ml/min Est GFR (Non-Af Amer) 69.8 ml/min BUN/Creatinine Ratio 23.1 H (10-20) Glucose 102 H (70-99(Fasting)) mg/dl Uric Acid 3.9 (2.6-7.2) mg/dl Calcium 8.8 (8.6-10.3) mg/dl Total Bilirubin 0.4 (0.2-1.0) mg/dl AST 17 (13-39) U/L ALT 12 (7-52) U/L Alkaline Phosphatase 42 (34-104) U/L C-Reactive Protein < 0.50 (0-0.5) mg/dl Total Protein 6.2 (6.0-8.3) gm/dl Albumin 3.8 (3.4-5.0) gm/dl Globulin 2.4 L (2.5-4.0) gm/dl Albumin/Globulin Ratio 1.6 (0.9-2) Administered Medications Oxycodone HCl (Oxycodone Hcl Ir 5 Mg Tab (Immediate Release)) 5 mg PO Q4 PRN PRN Reason: Pain 4,5,6 Stop: 08/17/23 21:20 Last Admin: 08/03/23 22:38 Dose: 5 mg Documented By: RENEE Discontinued Medications Acetaminophen (Acetaminophen 325 Mg Tab) 650 mg PO Q4H ALISHA Stop: 09/02/23 21:59 Last Admin: 08/03/23 22:39 Dose: 650 mg Documented By: RENEE Ondansetron HCl (Ondansetron Inj 2 Mg/Ml 2 Ml Vial) Confirm Administered Dose 4 mg .ROUTE .STK-MED ONE Stop: 08/03/23 16:41 Last Admin: 08/03/23 16:49 Dose: 4 mg Documented By: VICTOR MANUEL Oxycodone HCl (Oxycodone Hcl Ir 5 Mg Tab (Immediate Release)) 5 mg PO NOW STA Stop: 08/03/23 18:03 Last Admin: 08/03/23 18:10 Dose: 5 mg Documented By: MARGEW Imaging Data Radiologist's Impression: Knee X-Ray 08/03/23 16:44 XR knee RT 3V CLINICAL HISTORY: right knee pain and swelling TECHNIQUE: 3 views of the right knee were obtained. Comparison: None available at the time of this dictation. FINDINGS: There is no evidence of an acute fracture. Joint spaces are well-preserved. A suprapatellar effusion is seen. Vascular calcifications are noted. IMPRESSION: Suprapatellar effusion is seen without evidence of underlying fracture. ACT 112: Negative or not required by law. Electronically signed by: Scott Chaparro M.D. 08/03/2023 5:13 PM Discharge Plan Visit Data Chief Complaint: Knee Injury/Pain ED Provider: Navid Medina Discharge Problem: Acute pain of right knee, Osteoarthritis, Knee effusion, right Patient Disposition: Admitted As Inpatient Discharge Instructions Interventions: ED Discharge Assessment Last Done: 08/03/23 20:55
[2023-08-03] MEDS ORDERED: MoRPHine SULFATE 2 MG/ML CARP IV PRN (20:16)
--- NOTE | 2023-08-03 20:19 | History & Physical Report ---
Date of Service August 03, 2023 Assessment & Plan (1) Knee effusion, right: (2) Osteoarthritis: (3) Acute pain of right knee: (4) Depression with anxiety: (5) Hypertension: (6) Dyslipidemia: (7) Gastroesophageal reflux disease: Plan 82 year old female with h/o osteoarthritis, depression/anxiety, HTN, HLD presenting with severe knee pain. Acute right knee pain, right knee effusion: Orthopedics consulted Pain control: - scheduled Tylenol - prn Oxycodone, Morphine Uric acid level ordered to r/o gout/pseudogout as contributing factors to current presentation VTE ppx held pending evaluation by orthopedics Will need PT/OT evaluation Depression, anxiety: Continue home Lexapro HLD: Continue home atorvastatin GERD: Continue home omeprazole HTN: Continue home verapamil Dispo: admit to med/surg VTE ppx: deferred pending orthopedics evaluation FEN/GI: HH diet Code: Full Code History of Present Illness Primary Care Provider: Kavitha Luna DO 82 year old female with h/o osteoarthritis, depression/anxiety, HTN, HLD presenting with severe knee pain. Patient notes that ambulatory status was good until recently, has been using a cane for the past few weeks due to increasing right knee pain and swelling. Patient reports that she was ambulating like normal today, had sudden onset pain when she sat on the toilet and was subsequently unable to get up. Denies overt trauma. Notes constant 10/10 pain since, was unable to bear weight or ambulate, family had to carry her from toilet to bed. EMS subsequently called. At present, patient reports 3/10 pain at rest after receiving dose of oxycodone, still unable to move right leg due to pain. Patient was following with orthopedics in the outpatient setting, underwent aspirationx2 with hemarthrosis noted both times. Also had MRI done on 07/19, significant for complex Sr's cyst, complex medial meniscal tear, severe patellar chondromalacia. Patient states that she had follow up with orthopedics scheduled for 08/19 to discuss possible surgical intervention. Previously taking Tylenol for pain control, trial of Celebrex but patient states she didn't like how it made her feel. Denies associated fevers/chills, denies recent illness. ED Course: Knee X-ray with suprapatellar effusion without evidence of underlying fracture. Vitals stable, labs without significant abnormalities. Allergies Allergy/AdvReac Type Severity Reaction Status Date / Time niacin Allergy "flushing" Verified 08/03/23 19:06 sensation from toes to head Home Medications Medication Instructions Recorded Confirmed Type cholecalciferol (vitamin D3) 50 50 mcg PO DAILY 12/07/20 08/03/23 History mcg (2,000 unit) tablet (Vitamin D3) vitamin B complex 1 tab PO DAILY 12/07/20 08/03/23 History citqmabt-vxk-kqfdwf 5 mg-zeaxanth 1 cap PO DAILY #60 caps 06/02/22 08/03/23 Rx 1 mg-bilberry 7.5 mg-herbal capsule ([facility] Formula) escitalopram oxalate 5 mg tablet 5 mg PO DAILY #90 tabs 11/17/22 08/03/23 Rx verapamil 120 mg 24 hr 120 mg PO DAILY #90 caps 01/09/23 08/03/23 Rx capsule,extended release atorvastatin 10 mg tablet (Lipitor) 10 mg PO DAILY #90 tabs 05/13/23 08/03/23 Rx biotin 1 mg tablet 1 mg PO DAILY 08/03/23 08/03/23 History fexofenadine 180 mg tablet 180 mg PO DAILY 08/03/23 08/03/23 History omeprazole 20 mg capsule,delayed 20 mg PO DAILY gastroreflux #90 08/03/23 08/03/23 Rx release caps Past Med/Surg History Medical History (Updated 08/03/23 @ 20:36 by Jacob Bell DO) Dyslipidemia Gastroesophageal reflux disease Vision abnormalities Speech abnormality Acute confusion Family history of melanoma History of transient cerebral ischemia Obesity, Class I, BMI 30-34.9 Type 2 diabetes mellitus Bowel obstruction Surgical History History of femoral hernia repair 2014. with mesh. Dr Amato History of ovarian cystectomy History of dilation and curettage History of colonoscopy History of loop electrical excision procedure (LEEP) History of appendectomy Family History Aunt Breast cancer Colorectal cancer Diabetes Sister Lupus erythematosus Brother Skin cancer (melanoma) Brain cancer Denies family history of Ovarian cancer Prostate cancer Myocardial infarction Lung cancer Social History Smoking Status: Former smoker Tobacco Type: Cigarettes Cigarettes Per Day: "Couple packs a day". Quit in 1984.; Second Hand Exposure: No; Do You Dip or Chew Tobacco: No; Tobacco Cessation Education Requested by Patient: No Hx Alcohol Use: Yes Alcohol type: wine Hx Substance Use: No Preferred Language: French Communication Ability: Effective Visual Impairment: Limited Hearing Ability: Normal Client Development Consultant Required: No Beliefs That Will Affect Care: Cheondoism Cheondoism Beliefs: Presbyterian/Druze. marital status: / marital status details: remarried Current Living Situation: Family Current Living Situation Comment: Lives with Niece Quan Golden. current occupational status: retired How many Children do You have: 0 Other Information That Helps Us Care for You: No Feels Safe at Home: Yes Safety Concerns: Feels Safe At This Time Childhood Exposure to Second-Hand Smoke: Yes caffeine: Yes Dental Care, Regularly: Yes Physical Activity Frequency: Does not Exercise Seatbelt Use: always Sunscreen Use: No Assistive Devices: Cane, Glasses and Hospital Bed Review of Systems Review of Systems: as per HPI Physical Exam Physical Exam: General: Alert and oriented. No acute distress Cardiac: Regular rate and rhythm, no murmurs appreciated Respiratory: Lungs clear to auscultation bilaterally, No increased work of breathing Abdominal: Soft, non-tender, non-distended. Bowel sounds present. MSK: Right knee held in full extension, +suprapatellar effusion, extremely tender to palpation, unable to engage in active or passive ROM due to pain, no overlying erythema or warmth noted Psych: mood affect congruence Results & Data Results & Data Vital Signs (Past 12 Hours) Vital Signs Temp Pulse Pulse Resp BP BP Pulse Ox 08/03/23 19:21 87 18 138/82 94 08/03/23 19:19 83 18 95 08/03/23 17:00 80 08/03/23 16:22 36.4 C L 78 16 138/71 94 O2 Del Method 08/03/23 19:21 Room Air 08/03/23 19:19 Room Air 08/03/23 17:00 08/03/23 16:22 Room Air Diagnostic Findings Knee X-Ray 08/03/23 16:44 XR knee RT 3V CLINICAL HISTORY: right knee pain and swelling TECHNIQUE: 3 views of the right knee were obtained. Comparison: None available at the time of this dictation. FINDINGS: There is no evidence of an acute fracture. Joint spaces are well-preserved. A suprapatellar effusion is seen. Vascular calcifications are noted. IMPRESSION: Suprapatellar effusion is seen without evidence of underlying fracture. ACT 112: Negative or not required by law. Electronically signed by: Scott Chaparro M.D. 08/03/2023 5:13 PM Supervising Physician Co-Signing Physician Notes Attending addendum: I have physically seen this patient, have supervised the medical residents activities, and agree with the H&P unless as otherwise noted. Assessment and Plan: Right knee suprapatellar effusion- Patient has a pending appointment with Dr. Minaya in the outpatient setting for sometime in August Has reportedly had fluid drained from the right knee twice recently Effusion was reportedly hemorrhagic, so they did not send off any studies such as crystalline studies and/or culture and cell counts Will admit to medical surgical and consult orthopedic surgery Of note, patient finds it very difficult to walk, and did get some relief with oxycodone 5 mg from the ED Pending orthopedic assessment, if no procedure is otherwise performed, will need PT/OT evaluation Acetaminophen 650 mg by mouth every 6 hours as needed for mild pain or fever Oxycodone 5 mg by mouth every 6 hours as needed for moderate pain Morphine sulfate 2 mg IV every 4 hours as needed for severe pain Hypertension- Continue verapamil Resident Activity Tracking Resident Involvement: Resident Care Provided Care Provided: Adult [facility]
[2023-08-03] MEDS ORDERED: POLYETHYLENE (MIRALAX) 17 GM PACK PO PRN (21:21)
[2023-08-03] MEDS ORDERED: MELATONIN 3 MG TAB PO PRN (21:21)
[2023-08-03 21:49] LABS: Uric Acid 3.9 mg/dl (2.6-7.2)
[2023-08-03] MEDS: oxyCODONE HCL IR 5 MG TAB (IMMEDIATE RELEASE) PO PRN (22:38)
[2023-08-03] MEDS: ACETAMINOPHEN 325 MG TAB PO SCH (22:39)
[2023-08-03] MEDS: MoRPHine SULFATE 4 MG/ML 1 ML CARP\\VIAL IV PRN (23:55)
[2023-08-04] MEDS: ACETAMINOPHEN 325 MG TAB PO SCH (06:05)
--- NOTE | 2023-08-04 06:22 | Billing Data ---
Date of Service August 04, 2023 Coding Level of Care Code 41397 INT INP/OBS CARE
[2023-08-04] MEDS: ESCITALOPRAM OXALATE 20 MG TAB PO SCH (08:06)
[2023-08-04] MEDS: CEROVITE ADV FORMULA TAB PO SCH (08:07)
[2023-08-04] MEDS: VERAPAMIL HCL 120 MG TABCR PO SCH (08:07)
[2023-08-04] MEDS: PANTOprazole 40 MG TAB PO SCH (08:07)
[2023-08-04] MEDS: FEXOFENADINE HCL 180 MG TAB PO SCH (08:07)
[2023-08-04] MEDS: ATORVASTATIN 10 MG TAB PO SCH (08:07)
[2023-08-04] MEDS ORDERED: ESCITALOPRAM OXALATE 10 MG TAB PO SCH (09:00)
[2023-08-04] MEDS ORDERED: oxyCODONE HCL IR 5 MG TAB (IMMEDIATE RELEASE) PO PRN (09:46)
[2023-08-04] MEDS ORDERED: MoRPHine SULFATE 2 MG/ML CARP IV PRN (09:47)
--- NOTE | 2023-08-04 10:56 | Hospitalist Progress Note ---
Date of Service August 04, 2023 Assessment & Plan (1) Knee effusion, right: (2) Osteoarthritis: (3) Acute pain of right knee: (4) Depression with anxiety: (5) Hypertension: (6) Dyslipidemia: (7) Gastroesophageal reflux disease: Plan 82 year old female with h/o osteoarthritis, depression/anxiety, HTN, HLD presenting with severe knee pain. Acute right knee pain, right knee effusion: Known to have large complex medial meniscus tear, severe chondromalacia patella, hemarthrosis, large popliteal cyst. Knee was aspirated 07/16 hemarthrosis, 07/23 with steroid injection Possibly knee "locked" yesterday related to meniscus tear causing acute pain? No interval falls/trauma. -seems unlikely gout or pseudogout based on imaging and known findings above, lack of warmth/inflammation. Uric acid was <4 -consulted orthopedics - joint effusion aspirated, follow up with Dr Minaya -pain control - increased oxycodone and decreased IV morphine -PT/OT eval PT - reviewed - needed sig assistance today, continue PT might need rehab referral Depression, anxiety: Continue home Lexapro HLD: Continue home atorvastatin GERD: Continue home omeprazole HTN: Continue home verapamil VTE ppx: enox Admission and Anticipated Discharge Date Admission Date: August 03, 2023 Subjective Severe R knee pain day of admission, could not stand/walk Improved after pain medications, swelling seems similar to previous, no fevers, has not been OOB Physical Exam Physical Exam: PHYSICAL EXAMINATION Last 24h vital signs reviewed, see documentation in flowsheet General: comfortable appearing, no distress HEENT: Normocephalic, atraumatic, pupils round and equal, sclerae anicteric, no conjunctival injection, moist mucus membranes Lungs: Normal respiratory effort. Clear to auscultation bilaterally. No RRW Heart: Regular rate and rhythm, no murmurs. No JVD Abdomen: Soft, nontender, nondistended. Bowel sounds present. Extremities: Warm, dry, well-perfused. No extremity edema. R knee with moderate to large effusion, no warmth/erythema or tenderness, tolerates ROM fairly well Neuro: Alert and oriented x 4, face symmetric, moves 4 extremities well Psych: Normal affect and behavior Results & Data Results & Data Vital Signs (Past 12 Hours) Vital Signs Temp Pulse Resp BP Pulse Ox O2 Del Method 08/04/23 07:00 36.5 C 77 14 122/70 91 Room Air Diagnostic Findings Knee MRI 07/20: IMPRESSION: 1. Large complex tear involving the body and posterior horn of the medial meniscus. The meniscus is extruded. 2. Moderate to severe chondrosis is noted in the medial compartment. 3. The lateral meniscus, the cruciate ligaments, and the collateral ligaments appear intact. 4. Severe chondromalacia patella with extensive full thickness cartilage loss as above, greatest laterally. 5. Large joint effusion. This contains complex debris typical in appearance for blood products. This is consistent with the reported history of hemarthrosis. 6. Large complex/debris-containing popliteal cyst. 7. Soft tissue edema is seen around the knee. 8. Additional findings as above. PG Care Time/CCT Total # of Minutes Spent Total Time Spent with Patient: Total time spent is greater than 50% in coordination of care (as documented) at patient's floor/unit and/or counseling patient: Coding Level of Care Code 50326 SUB INP/OBS CARE 2/35MIN Diagnoses Knee effusion, right M25.461 Osteoarthritis M19.90 Acute pain of right knee M25.561 Depression with anxiety F41.8 Hypertension I10 Dyslipidemia E78.5 Gastroesophageal reflux disease K21.9
--- NOTE | 2023-08-04 11:53 | Orthopedic Consultation ---
Date of Service August 04, 2023 Assessment & Plan (1) Knee effusion, right: Patient was seen and evaluated today with Dr. Minaya. I had a long discussion today with the patient about her right knee pathology with ample amount of time for her to ask any questions or state any concerns. All questions and concerns were answered to the patient satisfaction. At this point, Dr. Minaya does not feel that it is necessary to proceed with surgical intervention during this hospital course. She does have a scheduled appointment with him already and can discuss surgical interventions at that point if deemed necessary. We did review the MRI together and which does show complex tears of her meniscus as well as os teoarthritic changes from moderate to severe throughout her right knee. She has had multiple aspirations as of recently. She does appear to have another pretty significant effusion. Will proceed with aspiration of the joint fluid. See procedure note below. Post aspiration instructions were given to the patient with verbal understanding. She is encouraged to work with physical therapy/Occupational Therapy while she is here as an inpatient. Medical management per primary. She will follow-up with her scheduled visit with Dr. Minaya here in August. Please reach out by [facility] text or to [facility] if the patient situation is to change. Procedure: Intra-Articular Joint Aspiration Location: Right knee Ultrasound guidance: No Verbal informed consent obtained: Yes Cleaned with: Betadine and alcohol swab Anesthesia: None Needle: 18gauge 3.5 Volume aspirated: 40cc sanguineous Injectate: None Hemostasis obtained. Bandage applied. Patient tolerated procedure well. Post-procedural care instructions provided. History of Present Illness Reason for Consultation: . Right knee effusion/discomfort Requesting Physician: . Attending Physician: Linda Smith MD . Jayashree is an 82-year-old female who who is known to [facility] for continued right knee discomfort. She has been following with Dr. Jay for her right knee. She has had to joint aspirations with 1 injection of corticosteroids. Her most recent intervention was about 10 days ago. She notes that yesterday, she was trying to sit down on her toilet whenever she had significantly worsened right knee pain. She notes that she was unable to stand or ambulate due to the discomfort. She was sent to the emergency department. They completed another x-ray which was only positive for joint effusion. No fracture seen on x-ray. We are then consulted. Today, she notes that her pain is better than it was yesterday. She still has significant joint effusion to the right knee. She does note that certain positions to exacerbate her pain. She notes that the steroid injection did not provide much relief. She denies any other concerns today. Allergies Allergy/AdvReac Type Severity Reaction Status Date / Time niacin Allergy "flushing" Verified 08/03/23 19:06 sensation from toes to head Home Medications Medication Instructions Recorded Confirmed Type cholecalciferol (vitamin D3) 50 50 mcg PO DAILY 12/07/20 08/03/23 History mcg (2,000 unit) tablet (Vitamin D3) vitamin B complex 1 tab PO DAILY 12/07/20 08/03/23 History nyjxplzq-bcz-oladei 5 mg-zeaxanth 1 cap PO DAILY #60 caps 06/02/22 08/03/23 Rx 1 mg-bilberry 7.5 mg-herbal capsule ([employer] Formula) escitalopram oxalate 5 mg tablet 5 mg PO DAILY #90 tabs 11/17/22 08/03/23 Rx verapamil 120 mg 24 hr 120 mg PO DAILY #90 caps 01/09/23 08/03/23 Rx capsule,extended release atorvastatin 10 mg tablet (Lipitor) 10 mg PO DAILY #90 tabs 05/13/23 08/03/23 Rx biotin 1 mg tablet 1 mg PO DAILY 08/03/23 08/03/23 History fexofenadine 180 mg tablet 180 mg PO DAILY 08/03/23 08/03/23 History omeprazole 20 mg capsule,delayed 20 mg PO DAILY gastroreflux #90 08/03/23 08/03/23 Rx release caps Past Med/Surg History Medical History (Updated 08/03/23 @ 20:36 by Jacob Bell DO) Dyslipidemia Gastroesophageal reflux disease Vision abnormalities Speech abnormality Acute confusion Family history of melanoma History of transient cerebral ischemia Obesity, Class I, BMI 30-34.9 Type 2 diabetes mellitus Bowel obstruction Surgical History History of femoral hernia repair 2013. with mesh. Dr Amato History of ovarian cystectomy History of dilation and curettage History of colonoscopy History of loop electrical excision procedure (LEEP) History of appendectomy Family History Aunt Breast cancer Colorectal cancer Diabetes Sister Lupus erythematosus Brother Skin cancer (melanoma) Brain cancer Denies family history of Ovarian cancer Prostate cancer Myocardial infarction Lung cancer Social History Smoking Status: Former smoker Tobacco Type: Cigarettes Cigarettes Per Day: "Couple packs a day". Quit in 1984.; Second Hand Exposure: No; Do You Dip or Chew Tobacco: No; Tobacco Cessation Education Requested by Patient: No Hx Alcohol Use: Yes Alcohol type: wine Hx Substance Use: No Preferred Language: Bahraini Communication Ability: Effective Visual Impairment: Limited Hearing Ability: Normal Training Administrator Required: No Beliefs That Will Affect Care: Mu-Ism Mu-Ism Beliefs: Presbyterian/Scientology. marital status: / marital status details: remarried Current Living Situation: Family Current Living Situation Comment: Lives with Rajaniece Quan Linexavier. current occupational status: retired How many Children do You have: 0 Other Information That Helps Us Care for You: No Feels Safe at Home: Yes Safety Concerns: Feels Safe At This Time Childhood Exposure to Second-Hand Smoke: Yes caffeine: Yes Dental Care, Regularly: Yes Physical Activity Frequency: Does not Exercise Seatbelt Use: always Sunscreen Use: No Assistive Devices: Cane Review of Systems All systems reviewed & are unremarkable except as noted in HPI & below. Physical Exam .General: Alert and oriented. No acute distress Cardiac: Regular rate and rhythm, no murmurs appreciated Respiratory: Lungs clear to auscultation bilaterally, No increased work of breathing Abdominal: Soft, non-tender, non-distended. Bowel sounds present. MSK: Right knee held in full extension, +suprapatellar effusion, extremely tender to palpation, unable to engage in active or passive ROM due to pain, no overlying erythema or warmth noted Psych: mood affect congruence Musculoskeletal Focused examination of the right knee shows significant joint effusion but no erythema, ecchymosis, warmth to touch, or other obvious deformities. Tenderness to palpation diffusely throughout the right knee. Bilateral lower extremity weakness. Unable to do straight leg raise. Limited range of motion due to subjective weakness and discomfort. Active plantarflexion dorsiflexion of the right ankle. +2 DP and PT pulses. Less than 2-second capillary refill. Normal sensation. Neurovascular intact. Results & Data Results & Data Laboratory Results . Laboratory Results - last 24 hr 08/03/23 16:55 WBC 6.84 RBC 3.60 L Hgb 10.6 L Hct 32.2 L MCV 89.4 MCH 29.4 MCHC 32.9 RDW Std Deviation 45.5 RDW Coeff of Sanchez 14.0 Plt Count 319 MPV 9.5 Immature Gran % (Auto) 0.4 Neut % (Auto) 67.9 Lymph % (Auto) 16.5 [place] % (Auto) 11.3 Eos % (Auto) 3.5 Baso % (Auto) 0.4 Neut # (Auto) 4.64 Lymph # (Auto) 1.[address] [place] # (Auto) 0.77 H Eos # (Auto) 0.24 Baso # (Auto) 0.03 Immature Gran # (Auto) 0.03 ESR 11 Sodium 133 L Potassium 4.1 Chloride 100 Carbon Dioxide 27 Anion Gap 6 BUN 18 Creatinine 0.78 Est Cr Clr Drug Dosing 56.9 Est GFR ( Amer) 80.9 Est GFR (Non-Af Amer) 69.8 BUN/Creatinine Ratio 23.1 H Glucose 102 H Uric Acid 3.9 Calcium 8.8 Total Bilirubin 0.4 AST 17 ALT 12 Alkaline Phosphatase 42 C-Reactive Protein < 0.50 Total Protein 6.2 Albumin 3.8 Globulin 2.4 L Albumin/Globulin Ratio 1.6 Diagnostic Findings . Knee X-Ray 08/03/23 16:44 XR knee RT 3V CLINICAL HISTORY: right knee pain and swelling TECHNIQUE: 3 views of the right knee were obtained. Comparison: None available at the time of this dictation. FINDINGS: There is no evidence of an acute fracture. Joint spaces are well-preserved. A suprapatellar effusion is seen. Vascular calcifications are noted. IMPRESSION: Suprapatellar effusion is seen without evidence of underlying fracture. ACT 112: Negative or not required by law. Electronically signed by: Scott Chaparro M.D. 08/03/2023 5:13 PM PG Care Time/CCT Total # of Minutes Spent Total Time Spent with Patient: Total time spent is greater than 50% in coordination of care (as documented) at patient's floor/unit and/or counseling patient: Coding Level of Care Code 54027 IN/OBS CONSULT LVL 3,45M Diagnoses Knee effusion, right M25.461
[2023-08-04] MEDS: ONDANSETRON 4 MG OD TAB PO PRN (15:50)
[2023-08-05] MEDS: ENOXAPARIN INJ 40 MG/0.4 ML SYR SQ SCH (07:49)
--- NOTE | 2023-08-06 06:59 | Discharge Summary ---
Date of Service August 06, 2023 Admission HPI Per Admitting Provider 82 year old female with h/o osteoarthritis, depression/anxiety, HTN, HLD presenting with severe knee pain. Patient notes that ambulatory status was good until recently, has been using a cane for the past few weeks due to increasing right knee pain and swelling. Patient reports that she was ambulating like normal today, had sudden onset pain when she sat on the toilet and was subsequently unable to get up. Denies overt trauma. Notes constant 10/10 pain since, was unable to bear weight or ambulate, family had to carry her from toilet to bed. EMS subsequently called. At present, patient reports 3/10 pain at rest after receiving dose of oxycodone, still unable to move right leg due to pain. Patient was following with orthopedics in the outpatient setting, underwent aspirationx2 with hemarthrosis noted both times. Also had MRI done on 07/19, significant for complex Sr's cyst, complex medial meniscal tear, severe patellar chondromalacia. Patient states that she had follow up with orthopedics scheduled for 08/19 to discuss possible surgical intervention. Previously taking Tylenol for pain control, trial of Celebrex but patient states she didn't like how it made her feel. Denies associated fevers/chills, denies recent illness. ED Course: Knee X-ray with suprapatellar effusion without evidence of underlying fracture. Vitals stable, labs without significant abnormalities. Principal Diagnosis acute on chronic knee pain related to knee effusion, complex meniscus tear, underlying osteoarthritis Discharge Exam PHYSICAL EXAMINATION Last 24h vital signs reviewed, see documentation in flowsheet General: comfortable appearing, no distress, sitting in chair HEENT: Normocephalic, atraumatic, pupils round and equal, sclerae anicteric, no conjunctival injection, moist mucus membranes Lungs: Normal respiratory effort. Clear to auscultation bilaterally. No RRW Heart: Regular rate and rhythm, no murmurs. No JVD Abdomen: Soft, nontender, nondistended. Bowel sounds present. Extremities: Warm, dry, well-perfused. No extremity edema. R knee with decrease in effusion, no warmth/erythema or tenderness Neuro: Alert and oriented x 4, face symmetric, moves 4 extremities well Psych: Normal affect and behavior Discharge Data Allergies Allergy/AdvReac Type Severity Reaction Status Date / Time niacin Allergy "flushing" Verified 03/18/24 19:06 sensation from toes to head Consultations 08/03/23 20:45 ED Decision to Admit Stat 08/03/23 21:21 Consult Orthopedic Surgery Routine 08/05/23 10:14 Consult Orthopedic Surgery Routine 08/05/23 17:15 Consult [facility] licensed psychologist manager Routine Procedures Performed 08/03 - R knee arthrocentesis - by ortho Ordered Studies Knee X-Ray 08/03/23 16:44 XR knee RT 3V CLINICAL HISTORY: right knee pain and swelling TECHNIQUE: 3 views of the right knee were obtained. Comparison: None available at the time of this dictation. FINDINGS: There is no evidence of an acute fracture. Joint spaces are well-preserved. A suprapatellar effusion is seen. Vascular calcifications are noted. IMPRESSION: Suprapatellar effusion is seen without evidence of underlying fracture. ACT 112: Negative or not required by law. Electronically signed by: Scott Chaparro M.D. 08/03/2023 5:13 PM 08/03/23 16:55 08/03/23 16:55 Hospital Course (1) Knee effusion, right: (2) Osteoarthritis: (3) Acute pain of right knee: (4) Depression with anxiety: (5) Hypertension: (6) Dyslipidemia: (7) Gastroesophageal reflux disease: Plan 82 year old female with history of acute on chronic right knee pain related to issues detailed below. Had longstanding pain R knee related to OA. Fell sometime in winter - she's unsure timing perhaps late April or May. Recently has been followed in the outpatient setting with increasing R knee pain over past 6 weeks or so. Day of admission developed acutely worse R knee pain while on commode, extremely severe pain, and was unable to move knee or stand/walk. Possibly knee "locked" related to meniscus tear causing acute pain? No interval falls/trauma. Acute right knee pain, right knee effusion: Known to have large complex medial meniscus tear, severe chondromalacia patella, hemarthrosis, large popliteal cyst. Knee was aspirated 07/16 hemarthrosis, 07/23 with steroid injection -seems unlikely gout or pseudogout based on imaging and known findings above, lack of warmth/inflammation. Uric acid was <4 -consulted orthopedics, seen by Dr. Minaya - joint effusion aspirated for comfort 08/03 with improvement in symptoms. Subsequently was able to ambulate with walker and PT. Pain remained significant, requiring 5 mg oxycodone alternating with acetaminophen -follow up with Dr Minaya - has appointment in 2 weeks. Will try to schedule primary care or ortho PA appointment in interim to assess pain, effusion. -PT/OT recommended home health. -I updated her niece at bedside 08/04 Depression, anxiety: Continue home Lexapro HLD: Continue home atorvastatin GERD: Continue home omeprazole HTN: Continue home verapamil Total Time Total Time Spent Total Time Spent (In Minutes): I personally spent: 40 minutes today on clinical care activities including: reviewing chart notes and vital signs reviewing labs discussion with healthcare or medical examining and counseling the patient counseling the patient's family writing orders documentation Discharge Plan Discharge Items Patient Disposition: Home - Home Health Services Reason For Visit: KNEE PAIN/INJURY Discharge Diagnosis: Right knee pain Activity: Per Instructions section Weightbearing: Full weightbearing Non-emergency contact: Primary Care Provider and Surgeon Call non-emergency contact if: you have any medication questions and your symptoms worsen Follow-up/Referrals: Kelechi Minaya MD [Physician] - Kavitha Luna DO [Primary Care Provider] - Diet: Regular Addtl Attending Provider Instructions: Right knee pain related to effusion (fluid in knee joint), complex meniscus tear, severe knee arthritis -effusion was tapped by orthopedics -follow up with Dr. Minaya to consider knee replacement -if knee pain related to the swelling (effusion) increases in the interim contact Dr. Jay or Dr. Minaya about another procedure to draw out fluid You can take acetaminophen on a scheduled basis to help with pain 500-1000 mg every 6 to 8 hours, maximum 3000 mg per 24 hours Oxycodone 5 mg has been helpful with your knee pain - every 6 hours as needed seems to be a safe interval for you If you develop constipation related to pain medicine, you can take senna and/or miralax as directed, these are available over the counter I'll make request for you to get seen in primary care clinic or ortho clinic next week to check on knee pain and adjust/refill pain medicine Pending Studies at Discharge: No Stand-Alone Forms: My [facility] [employer], Pain - Opioid Pain Management, Smoking Cessation Medications and DC Order Prescriptions: New oxycodone 5 mg Tablet 5 mg PO Q6H PRN (Reason: pain) Qty: 30 0RF ondansetron 4 mg Tablet,Disintegrating 4 mg PO Q6H PRN (Reason: nausea) Qty: 20 0RF Continued escitalopram oxalate 5 mg tablet 5 mg PO DAILY Qty: 90 3RF verapamil 120 mg capsule,ext rel. pellets 24 hr 120 mg PO DAILY Qty: 90 3RF atorvastatin [Lipitor] 10 mg tablet 10 mg PO DAILY Qty: 90 3RF omeprazole 20 mg capsule,delayed release(DR/EC) 20 mg PO DAILY Qty: 90 3RF Macular Health Formula 5-1-7.5 mg capsule 1 cap PO DAILY Qty: 60 0RF vitamin B complex Tablet 1 tab PO DAILY cholecalciferol (vitamin D3) [Vitamin D3] 50 mcg (2,000 unit) Tablet 50 mcg PO DAILY fexofenadine 180 mg Tablet 180 mg PO DAILY biotin 1 mg Tablet 1 mg PO DAILY Discharge Orders: Discharge Order (Routine); Ordered 08/05/23 Ordered By: Linda Sanchez/Other Patient Handouts: Preventing Deep Vein Thrombosis Admission Data Admit Date/Time: 08/03/23 20:14 Attending Provider: Linda Smith Admit Provider: Jacob Bell Primary Care Provider: Kavitha Luna Other Providers: Fer Scott; Kelechi Minaya; Matthew Lainez; [place] Other Interventions: Discharge Summary Assessment (RN) Last Done: 08/05/23 17:42 Coding Level of Care Code 14501 INP/OBS DISCH >30 MIN Diagnoses Knee effusion, right M25.461 Osteoarthritis M19.90 Acute pain of right knee M25.561 Depression with anxiety F41.8 Hypertension I10 Dyslipidemia E78.5 Gastroesophageal reflux disease K21.9
[2023-08-06] MEDS ORDERED: ESCITALOPRAM OXALATE 10 MG TAB PO SCH (09:00)
== END 2023-08-05 18:13 | disposition home health service (06) | DRG 565 ==
LOC: ED 16:13 → 3W 20:14 → SUATTDRO 20:14 → INTOOBSV 20:14 → 3W 20:55